=== PATIENT | female | born 1940 | race Caucasian/White ===

== ENCOUNTER 2019-06-07 18:15 | Inpatient (IN) | payer MEDICARE ==
--- NOTE | 2019-06-07 18:46 | ED Physician Chart ---
ED Chief Complaint/HPI - Patient Information Date Seen:: 06/07/19 Time Seen:: 18:30 Chief Complaint:: Depression History of Present Illness:: onset x 3 days of depression and sadness; no report of trauma, SIs, H/As, neck pain, C/P, SOB, S/T, Abd. Pain, A/N/V/D/C, fever, chills, or urinary s/s Allergies:: Allergies Allergy/AdvReac Type Severity Reaction Status Date / Time aspirin Allergy Verified 06/07/19 18:30 metoclopramide [From Reglan] Allergy Verified 06/07/19 18:30 Penicillins Allergy Verified 06/07/19 18:30 Vitals:: Vital Signs - 8 hr 06/07/19 18:30 Temp 97.8 F HR 98 RR 21 BP 98/58 O2 Sat % 100 Historian:: Patient, EMS Review:: Nurse's Note Reviewed, Old Chart Reviewed, EMS run form Reviewed ED Review of Systems - Review of Systems General/Constitutional: No fever, No chills, No weight loss, No weakness, No diaphoresis, No edema, No loss of appetite Skin: No skin lesions, No rash, No bruising Head: No headache, No light-headedness Eyes: No loss of vision, No pain, No diplopia ENT: No earache, No nasal drainage, No sore throat, No tinnitus Neck: No neck pain, No swelling, No thyromegaly, No stiffness, No mass noted Cardio Vascular: No chest pain, No palpitations, No PND, No orthopnea, No edema Pulmonary: No SOB, No cough, No sputum, No wheezing GI: No nausea, No vomiting, No diarrhea, No pain, No melena, No hematochezia, No constipation, No hematemesis G/U: No dysuria, No frequency, No hematuria, No nacturia Paving Supervisor: No vaginal discharge, No abnormal vaginal bleed, No contraction Musculoskeletal: No bone or joint pain, No back pain, No muscle pain Endocrine: No polyuria, No polydipsia Psychiatric: Prior psych history, Depression, Anxiety, No suicidal ideation, No homicidal ideation, No auditory hallucination, No visual hallucination Hematopoietic: No bruising, No lymphadenopathy Allergic/Immuno: No urticaria, No angioedema Neurological: No syncope, No focal symptoms, No weakness, No paresthesia, No headache, No seizure, No dizziness, No confusion, No vertigo ED Past Medical History - Past Medical History Obtainable: Yes Past Medical History: HTN Family History: HTN Social History: Non Smoker, No Alcohol, No Drug Use, , Care Facility Surgical History: None Psychiatricy History: Depression Medication: Reviewed ED Physical Exam - Physical Examination General/Constitutional: Awake, Well-developed, well-nourished, Alert, No distress, GCS 15, Non-toxic appearing, Ambulatory Head: Atraumatic Eyes: Lids, conjuctiva normal, PERRL, EOMI Skin: Nl inspection, No rash, No skin lesions, No ecchymosis, Well hydrated, No lymphadenopathy ENMT: External ears, nose nl, TM canals nl, Nasal exam nl, Lips, teeth, gums nl , Oropharynx nl, Tonsils nl Neck: Nontender, Full ROM w/o pain, No JVD, No nuchal rigidity, No bruit, No mass, No stridor Respiratory: Nl effort/Exclusion, Clear to Auscultation, No Wheeze/Rhonchi/Rales Cardio Vascular: RRR, No murmur, gallop, rubs, NL S1 S2, Carotid/Femoral/Distal pulses equal bilaterally GI: No tenderness/rebounding/guarding, No organomegaly, No hernia, Normal BS's, Nondistended, No mass/bruits, No McBurney tenderness : No CVA tenderness Extremities: No tenderness or effusion, Full ROM, normal strength in all extremities, No edema, Normal digits & nails Neuro/Psych: Alert/oriented, DTR's symmetric, Normal sensory exam, Normal motor strength, Judgement/insight normal, Mood normal, Normal gait, No focal deficits Other Neuro/Psych comments:: + Psychomotor Retardation; no SIs; Mood/Affect: Tearful Misc: Normal back, No paraspinal tenderness ED Septic Shock - . Is Septic Shock (SBP<90, OR Lactate>4 mmol\L) present?: No - <6hrs of presentation: Vital Signs: Vital Signs - 8 hr 06/07/19 18:30 Temp 97.8 F HR 98 RR 21 BP 98/58 O2 Sat % 100 ED Reassessment (Disposition) - Reassessment Reassessment Condition:: Improved - Diagnosis Diagnosis:: Depression; Medical Clearance
[2019-06-07 18:57] LABS: % BASOPHILS 0.8 % (0.0-2.0); % EOSINOPHILS 3.3 % (0.0-5.0); % LYMPHOCYTES 33.1 % (20.0-50.0); % MONOCYTES 8.9 % (2.0-10.0); % NEUTROPHILS 53.9 % (40.0-80.0); BASOPHILE ABSOLUTE 0.1 Th/cumm (0-0.2); EOSINOPHILE ABSOLUTE 0.2 Th/cmm (0.1-0.4); HEMATOCRIT 43.3 % (41.0-60); HEMOGLOBIN 13.5 gm/dL (12-16); LYMPHOCYTE ABSOLUTE 2.1 Th/cmm (1.5-3.0); MEAN CORPUSCULAR HEMOGLOBIN 20.2 pg (27.0-31.0); MEAN CORPUSCULAR HGB CONC 31.2 pg (28.0-36.0); MONOCYTE ABSOLUTE 0.6 Th/cmm (0.3-1.0); NEUTROPHILE ABSOLUTE 3.4 Th/cmm (1.8-8.0); PLATELET COUNT 309 Th/cmm (150-400); RED BLOOD COUNT 6.69 Mil/cmm (3.80-5.20); RED CELL DISTRIBUTION WIDTH 14.9 % (11.5-20.0); WHITE BLOOD COUNT 6.4 Th/cmm (4.8-10.8)
[2019-06-07 19:18] LABS: ALB/GLOB RATIO 1.8 (1.0-1.8); ALBUMIN 4.1 gm/dL (3.7-5.3); ALKALINE PHOSPHATASE 50 U/L (34-104); ANION GAP 13.8 (7.0-16.0); BILIRUBIN,TOTAL 0.5 mg/dL (0.3-1.0); BUN - UREA NITROGEN 15 mg/dL (7-25); CALCIUM SERUM 9.5 mg/dL (8.6-10.3); CARBON DIOXIDE 25.2 mEq/L (21.0-31.0); CHLORIDE 101 mEq/L (98-107); CHOLESTEROL 256 mg/dL (<200); CREATININE - SERUM 0.7 mg/dL (0.6-1.2); GLUCOSE 231 mg/dL (70-105); HDL -HIGH DENSITY LIPOPROTEIN 36 mg/dL (23-92); SGOT 10 U/L (13-39); SGPT/ALT 8 U/L (7-52); SODIUM SERUM 136 mEq/L (136-145); TOTAL PROTEIN,SERUM 6.4 gm/dL (6.0-8.3); TRIGLYCERIDES 315 mg/dL (<150)
[2019-06-07 19:20] LABS: ACETAMINOPHEN < 10.0 ug/mL (10.0-30.0)
[2019-06-07 19:23] LABS: MEAN CELL VOLUME 64.7 fl (81-100)
[2019-06-07 21:34] VITALS: BP 100/70
[2019-06-07] MEDS ORDERED: Maalox 30 mL Cup PO PRN (21:40)
[2019-06-07] MEDS ORDERED: Magnesium Hydroxide (MOM) 30 mL UDC PO PRN (21:52)
[2019-06-07] MEDS ORDERED: POLYETHYLENE GLYCOL 3350 17 GM PACK PO PRN (21:52)
[2019-06-07] MEDS ORDERED: Dextrose 50% 50 mL Abboject IVP PRN (23:25)
[2019-06-07] MEDS ORDERED: GLUCAGON HCl 1 MG KIT IM PRN (23:25)
[2019-06-08] MEDS: INSULIN LISPRO SLIDING SCALE 100 UNITS/ML UNIT SUBQ SCH ×4 (06:36→20:27)
[2019-06-08] MEDS: INSULIN HUMAN REGULAR 100 UNIT/ML VIAL SUBQ SCH ×3 (08:00→17:55)
[2019-06-08 08:08] LABS: A1C 7.5 % (4.8-5.6)
[2019-06-08] MEDS: Multivitamin Tab PO SCH (10:40)
[2019-06-08] MEDS: Ferrous Sulfate 325 MG TAB PO SCH (10:41)
[2019-06-08] MEDS: Benztropine 1 MG TAB PO SCH (10:41)
[2019-06-08] MEDS: Oxybutynin Chloride 5 mg ER Tab PO SCH (10:42)
[2019-06-08] MEDS ORDERED: Promethazine DM 6.25/15mg-5mL 5 ML SYR PO PRN (11:28)
--- NOTE | 2019-06-08 13:30 | History & Physical ---
ADMIT DATE: 06/08/2019 IDENTIFYING INFORMATION: The patient is a 78-year-old female. HISTORY OF PRESENT ILLNESS: The patient was admitted because of depression for 3 days. The patient was a poor historian. She believes she is 63, when in reality she is 78, also unable to tell me the date. She said she was hospitalized before and she reports she is trying to get a job and because she reports that she was hospitalized because of divorce and now she is getting back with her . She came from assisted living that she is trying to get back with her ex- who her. She denies any visual hallucination or paranoia. She said she sleeps well, eats well. No substance abuse. PAST PSYCHIATRIC HISTORY: The patient reports that she has a history of prior depression, was hospitalized before going through divorce. She denies prior suicide attempts, never tried to harm herself. Denies any visual hallucination or paranoia. Denies feeling paranoid. MEDICAL HISTORY: Deferred to the medical doctor. ALLERGIES: THE PATIENT IS ALLERGIC TO ASPIRIN, METOCLOPRAMIDE, PENICILLIN. The patient has hyperlipidemia, Cogentin, Celexa 20 mg daily. FAMILY AND SOCIAL HISTORY: The patient reports she is getting . She is from her , but getting back together. She has 3 children. She said she believed they are teenagers, unable to give me their ages. She said she has a master's Brazilian. 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 Looking to work as a human anatomy teacher. She came from an assisted living. She denies substance abuse. MENTAL STATUS EXAMINATION: The patient is appropriately dressed, not well groomed. She was alert, unable to tell me the date. She believes she is 63, when in reality she is 78. She denies any visual loss or paranoia. Denies any intent to harm herself or anyone. She reported feeling depressed. Sleep and appetite is okay. No intent to harm anyone or herself. She seems to have average intelligence. Her long and short term memory is poor. Insight and judgment is impaired. IMPRESSION: Major depression, recurrent, severe with no psychosis, dementia. MEDICAL DIAGNOSES: Deferred to the medical doctor. PLAN: The patient will continue on medication. We will do group therapy, milieu therapy, and individual therapy. ESTIMATED LENGTH OF STAY: 3-7 days. DISCHARGE CRITERIA: Decreasing depression, feeling better, decrease confusion as possible after discharge, outpatient treatment. [facility]# [id number]
[2019-06-08] MEDS: Atorvastatin Calcium 10 MG TAB PO SCH (17:54)
[2019-06-08] MEDS: Insulin Glargine 100 units/ml 10ml Vial SUBQ SCH (20:27)
--- NOTE | 2019-06-09 03:29 | Consultation ---
DATE OF CONSULTATION: INTERNAL MEDICINE CONSULTATION REFERRING PHYSICIAN: Dr. Wall. REASON FOR CONSULT: Medical management. HISTORY OF PRESENT ILLNESS: This is a 78-year-old female with a history of dementia, bipolar disease, type 2 diabetes, hypertension, chronic anemia, who was brought into the ED secondary to depression and sadness that was noted by staff where she lives. She states that she is not really depressed, but feels sick secondary to sore throat and a cough that has been going on for about a week. She denies any fever, chills or any other pulmonary symptomatology. The patient was [facility] for further management and care. PAST MEDICAL HISTORY: As noted above. PAST SURGERIES: The patient states that she has had bilateral arm surgery many years ago and also kidney surgery. FAMILY HISTORY: Likely noncontributory to this admission. SOCIAL HISTORY: Denies any tobacco or alcohol in the past. She is a and she lives at care facility. ALLERGIES: ASPIRIN, PENICILLINS, AND METOCLOPRAMIDE. OUTPATIENT MEDICATIONS: Tylenol 650 q. 6 p.r.n. for fever and pain, Cogentin 1 mg daily, Dulcolax 10 mg per rectum daily p.r.n. for moderate constipation, milk of magnesia 30 mL q. 4 p.r.n. for GI distress and constipation, citalopram 20 mg daily, iron sulfate 325 daily, Lantus insulin 20 units at bedtime and regular insulin 6 units t.i.d. with meals, Lamictal 100 mg at bedtime, Ativan 0.5 mg q. 4 p.r.n. for anxiety, Namenda 5 b.i.d., multivitamins daily, oxybutynin 10 mg daily, MiraLax 17 grams daily, Risperdal 1 mg daily and 2 mg at bedtime, trazodone 100 mg at bedtime, Ambien 5 mg at bedtime p.r.n. for insomnia. REVIEW OF SYSTEMS: CONSTITUTIONAL: She denies any fever, chills, any recent weight loss. HEAD AND NECK: Complaining of sore throat for the last few days. PULMONARY: Cough with phlegm production, mostly whitish secretions. CARDIAC: No chest pain. Denies any palpitations or any angina type of pain. GASTROINTESTINAL: No bowel habit changes. GENITOURINARY: No bladder habit changes. NEUROLOGICAL: No changes in vision, no headaches. Denies any syncope. PHYSICAL EXAMINATION: VITAL SIGNS: Temperature 97.8, pulse 82, respirations 18, BP 118/61, satting 100% on room air. GENERAL: Well-developed, obese female in no acute distress, nontoxic appearing. HEAD AND NECK: Normocephalic, atraumatic. Pupils are reactive to light. Extraocular movements are intact. Oropharynx: There is mild erythema on the posterior pharyngeal wall. No exudates noted. NECK: There is no JVD or LAD. CARDIAC: Regular rate and rhythm with distant sounds. LUNGS: Clear to auscultation bilaterally. ABDOMEN: Soft, supple, nontender, nondistended, normoactive bowel sounds. EXTREMITIES: Lower extremities: She has no pedal edema. NEUROLOGIC: Grossly intact, nonfocal. Cranial nerves 2-12 are grossly within normal limits. She is able to move 4 extremities with equal force and strength. LABORATORY DATA: White count 6.4, H and H 13/43, platelets of 309, glucose 231. Otherwise, chemistry was within normal limits. Troponins were negative x 1 set. LFTs were within normal limits. Triglycerides 315, cholesterol 256, LDL 177, HDL 36. DIAGNOSTICS: None current. ASSESSMENT: 1. Acute depression. 2. History of depression. 3. Bipolar disorder. 4. History of dementia. 5. Type 2 diabetes. 6. Essential hypertension. 7. History of chronic anemia. 8. Mild pharyngitis/upper respiratory infection. 9. Dyslipidemia. PLAN: The patient has been admitted to [facility] where she will be kept on her current home medications as scheduled. The patient will be treated symptomatically for her sore throat and cough with Cepacol lozenges, Phenergan, and she will receive a Zithromax course. The patient also will be started on atorvastatin 20 mg at bedtime. [facility]# [id number]
[2019-06-09] MEDS: INSULIN LISPRO SLIDING SCALE 100 UNITS/ML UNIT SUBQ SCH ×4 (06:38→21:49)
[2019-06-09] MEDS: INSULIN HUMAN REGULAR 100 UNIT/ML VIAL SUBQ SCH ×2 (08:00→12:00)
[2019-06-09] MEDS: Atorvastatin Calcium 10 MG TAB PO SCH (09:00)
[2019-06-09] MEDS: Ferrous Sulfate 325 MG TAB PO SCH (09:00)
[2019-06-09] MEDS: Multivitamin Tab PO SCH (09:00)
[2019-06-09] MEDS: Benztropine 1 MG TAB PO SCH (09:00)
[2019-06-09] MEDS: Oxybutynin Chloride 5 mg ER Tab PO SCH (09:00)
--- NOTE | 2019-06-09 14:51 | Progress Notes ---
DATE: 06/09/2019 sCase was discussed with staff of the patient, reviewed records. The patient continues to be confused, continues to be unable to carry on a conversation. She continues to have poor insight. Continues to need redirection. The patient reports she slept well, eating well. She has been compliant with the medication with no side effects since Celexa 20 mg a day and she is also on insulin. She is on Lamictal 100 mg at bedtime and Namenda 5 mg twice a day, multivitamin, oxybutynin, and Risperdal 1 mg daily and 2 mg at bedtime. We will continue the patient in group therapy, milieu therapy, adjust the medications as needed. [facility]# [id number]
[2019-06-09] MEDS: Insulin Glargine 100 units/ml 10ml Vial SUBQ SCH (21:48)
[2019-06-10] MEDS: INSULIN LISPRO SLIDING SCALE 100 UNITS/ML UNIT SUBQ SCH ×4 (06:59→21:37)
[2019-06-10] MEDS: Atorvastatin Calcium 10 MG TAB PO SCH (08:55)
[2019-06-10] MEDS: Ferrous Sulfate 325 MG TAB PO SCH (08:56)
[2019-06-10] MEDS: Benztropine 1 MG TAB PO SCH (08:56)
[2019-06-10] MEDS: Multivitamin Tab PO SCH (08:57)
[2019-06-10] MEDS: Oxybutynin Chloride 5 mg ER Tab PO SCH (08:57)
[2019-06-10] MEDS: Escitalopram Oxalate 10 MG, Escitalopram Oxalate 5 MG PO SCH (10:15)
[2019-06-10] MEDS ORDERED: Escitalopram Oxalate 10 MG, Escitalopram Oxalate 5 MG PO ONE (10:15)
--- NOTE | 2019-06-10 10:33 | Internal Medicine Prog Note ---
Internal Medicine Subjective - Subjective Service Date: 06/10/19 (COMFORTABLE) Patient seen and examined:: without staff Patient is:: awake Patient Complaints of:: sore throat Per staff patient has:: no adverse event Internal Medicine Objective - Results Result Diagrams: 06/07/19 18:40 06/07/19 18:40 Recent Labs: Laboratory Last Values WBC 6.4 Th/cmm (4.8-10.8) 06/07/19 18:40 RBC 6.69 Mil/cmm (3.80-5.20) H 06/07/19 18:40 Hgb 13.5 gm/dL (12-16) 06/07/19 18:40 Hct 43.3 % (41.0-60) 06/07/19 18:40 MCV 64.7 fl (81-100) L 06/07/19 18:40 MCH 20.2 pg (27.0-31.0) L 06/07/19 18:40 MCHC Differential 31.2 pg (28.0-36.0) 06/07/19 18:40 RDW 14.9 % (11.5-20.0) 06/07/19 18:40 Plt Count 309 Th/cmm (150-400) 06/07/19 18:40 MPV 8.0 fl 06/07/19 18:40 Neutrophils % 53.9 % (40.0-80.0) 06/07/19 18:40 Lymphocytes % 33.1 % (20.0-50.0) 06/07/19 18:40 Monocytes % 8.9 % (2.0-10.0) 06/07/19 18:40 Eosinophils % 3.3 % (0.0-5.0) 06/07/19 18:40 Basophils % 0.8 % (0.0-2.0) 06/07/19 18:40 Sodium 136 mEq/L (136-145) 06/07/19 18:40 Potassium 4.0 mEq/L (3.5-5.1) 06/07/19 18:40 Chloride 101 mEq/L (98-107) 06/07/19 18:40 Carbon Dioxide 25.2 mEq/L (21.0-31.0) 06/07/19 18:40 Anion Gap 13.8 (7.0-16.0) 06/07/19 18:40 BUN 15 mg/dL (7-25) 06/07/19 18:40 Creatinine 0.7 mg/dL (0.6-1.2) 06/07/19 18:40 Est GFR ( Amer) TNP 06/07/19 18:40 Est GFR (Non-Af Amer) TNP 06/07/19 18:40 BUN/Creatinine Ratio 21.4 06/07/19 18:40 Glucose 231 mg/dL (70-105) H 06/07/19 18:40 POC Glucose 237 MG/DL (70 - 105) H 06/10/19 09:11 Calcium 9.5 mg/dL (8.6-10.3) 06/07/19 18:40 Total Bilirubin 0.5 mg/dL (0.3-1.0) 06/07/19 18:40 AST 10 U/L (13-39) L 06/07/19 18:40 ALT 8 U/L (7-52) 06/07/19 18:40 Alkaline Phosphatase 50 U/L (34-104) 06/07/19 18:40 Troponin I < 0.01 ng/mL (0.01-0.05) L 06/07/19 18:40 Total Protein 6.4 gm/dL (6.0-8.3) 06/07/19 18:40 Albumin 4.1 gm/dL (3.7-5.3) 06/07/19 18:40 Globulin 2.3 gm/dL 06/07/19 18:40 Albumin/Globulin Ratio 1.8 (1.0-1.8) 06/07/19 18:40 Triglycerides 315 mg/dL (<150) H 06/07/19 18:40 Cholesterol 256 mg/dL (<200) H 06/07/19 18:40 LDL Cholesterol Direct 177 mg/dL (75-193) 06/07/19 18:40 HDL Cholesterol 36 mg/dL (23-92) 06/07/19 18:40 TSH 2.53 uIU/ml (0.34-5.60) 06/07/19 18:40 Salicylates < 25.0 mg/L (30.0-100.0) L 06/07/19 18:40 Acetaminophen < 10.0 ug/mL (10.0-30.0) L 06/07/19 18:40 Ethyl Alcohol < 10 mg/dL (0-10) 06/07/19 18:40 - Physical Exam Vitals and I&O: Vital Signs Temp 97.0 F 06/10/19 06:12 Pulse 73 06/10/19 06:12 Resp 18 06/10/19 07:39 BP 112/65 06/10/19 06:12 Pulse Ox 93 06/10/19 06:12 Intake & Output 06/09/19 06/10/19 06/10/19 18:59 06:59 18:59 Intake Total 240 Balance 240 Intake: Oral 240 Other: # Voids 2 Active Medications: Current Medications Acetaminophen (Tylenol) 650 mg PO Q6H PRN PRN Reason: PAIN Last Admin: 06/08/19 17:43 Dose: 650 mg Al Hydrox/Mg Hydrox/Simethicone (Maalox) 30 ml PO Q4H PRN PRN Reason: GI DISTRESS Stop: 08/06/19 21:39 Atorvastatin Calcium (Lipitor) 20 mg PO DAILY [facility]; Protocol Stop: 08/07/19 11:44 Last Admin: 06/10/19 08:55 Dose: 20 mg Azithromycin (Zithromax) 500 mg PO DAILY [facility] Stop: 08/07/19 11:44 Last Admin: 06/10/19 08:55 Dose: 500 mg Benzocaine/Menthol (Cepacol) 1 gordy MM Q4HR PRN PRN Reason: SORE THROAT Stop: 08/07/19 11:26 Benztropine Mesylate (Cogentin) 1 mg PO DAILY [facility] Stop: 08/07/19 08:59 Last Admin: 06/10/19 08:56 Dose: 1 mg Bisacodyl (Dulcolax 10 Mg Supp) 10 mg RC DAILY PRN PRN Reason: IF MOM INEFFECTIVE Stop: 08/06/19 21:51 Dextrose (D50w) 50 ml IVP PRN PRN PRN Reason: Blood Glucose less than 70 Stop: 08/06/19 23:24 Dextrose (Glutose 40%) 18.75 gm PO PRN PRN PRN Reason: Blood Glucose less than 70 Stop: 08/06/19 23:24 Escitalopram Oxalate 10 mg/ (Escitalopram Oxalate 5 mg) 15 mg PO DAILY [facility] Stop: 08/09/19 10:29 Ferrous Sulfate (Iron) 325 mg PO DAILY [facility] Stop: 08/07/19 08:59 Last Admin: 06/10/19 08:56 Dose: 325 mg Glucagon (Glucagen) 1 mg IM PRN PRN PRN Reason: Blood Glucose less than 70 Stop: 08/06/19 23:24 Insulin Glargine (Lantus Insulin) 20 units SUBQ HS [facility] Stop: 08/07/19 20:59 Last Admin: 06/09/19 21:48 Dose: 20 units Insulin Human Lispro (Humalog Insulin Sliding Scale) 0 units SUBQ [facility]; Protocol Stop: 08/07/19 07:29 Last Admin: 06/10/19 06:59 Dose: 2 units Lamotrigine (Lamictal) 100 mg PO HS [facility] Stop: 08/07/19 20:59 Last Admin: 06/09/19 21:18 Dose: 100 mg Lorazepam (Ativan) 0.5 mg PO Q4HR PRN; Protocol PRN Reason: Anxiety Stop: 07/07/19 21:39 Last Admin: 06/08/19 17:45 Dose: 0.5 mg Magnesium Hydroxide (Milk Of Magnesia) 30 ml PO PRN PRN PRN Reason: LAXATIVE Stop: 08/06/19 21:51 Memantine (Namenda) 5 mg PO BID [facility] Stop: 08/07/19 08:59 Last Admin: 06/10/19 08:56 Dose: 5 mg Multivitamins/Vitamin C (Theragran) 1 tab PO DAILY [facility] Stop: 08/07/19 08:59 Last Admin: 06/10/19 08:57 Dose: 1 tab Oxybutynin Chloride (Ditropan Xl) 10 mg PO DAILY [facility] Stop: 08/07/19 08:59 Last Admin: 06/10/19 08:57 Dose: 10 mg Polyethylene Glycol (Miralax) 17 gm PO DAILY PRN PRN Reason: Constipation Stop: 08/06/19 21:51 Promethazine HCl/Dextromethorphan (Phenergan Dm 6.25/15mg-5 Ml) 5 ml PO Q6HR PRN PRN Reason: Cough Stop: 08/07/19 11:27 Risperidone (Risperdal) 1 mg PO DAILY [facility]; Protocol Stop: 10/16/19 08:59 Last Admin: 06/10/19 08:57 Dose: 1 mg Risperidone (Risperdal) 2 mg PO HS [facility] Stop: 08/07/19 20:59 Last Admin: 06/09/19 21:18 Dose: 2 mg Trazodone HCl (Desyrel) 100 mg PO HS [facility] Stop: 08/07/19 20:59 Last Admin: 06/09/19 21:18 Dose: 100 mg Zolpidem Tartrate (Ambien) 5 mg PO HS PRN PRN Reason: Insomnia Stop: 08/06/19 21:39 General: alert HEENT: NC/AT, PERRLA, EOMI, throat clear Neck: Supple, No JVD, No thyromegaly, No LAD Lungs: CTAB Cardiovascular: RRR, Normal S1, Normal S2, without murmur Abdomen: soft, non-tender, non-distended, positive bowel sound Extremities: clear Neurological: no change Internal Medicine Assmt/Plan - Assessment Assessment: ACUTE PSYCH DECOMPENSATION WITH DEPRESSION HISTORY OF DEMENTIA HISTORY OF DM-2 HISTORY OF ESSENTIAL HTN CHRONIC ANEMIA DYSLIPIDIMIA URI - Plan Plan: CONT WITH CURRENT PSYCH INPT CARE AND MGT CONT WITH CURRENT MEDS SCHEDULED CONT WITH ZITHROMAX
[2019-06-10] MEDS: Insulin Glargine 100 units/ml 10ml Vial SUBQ SCH (21:38)
--- NOTE | 2019-06-11 00:07 | Progress Notes ---
DATE: SUBJECTIVE: Chart reviewed and the patient interviewed. Also discussed the patient's condition with the staff and reviewed records and labs. The patient is still depressed. The patient also is still tearful and is withdrawn. She is also interacting minimally with others. The patient also is feeling hopeless and helpless. The patient continued to take Celexa 20 mg every day, and she also continued to take Namenda 5 mg twice a day and Risperdal in a dose of 1 mg in the morning and 2 mg at bedtime. The patient also is taking trazodone 100 mg at bedtime, which helps the patient to sleep better at night. ASSESSMENT: The patient is still depressed. TREATMENT PLAN: Also, we will continue adjusting psychotropic medications and work on behavioral modification and work on her ineffective coping. Also, we will discontinue Celexa and start Lexapro. Hopefully, that will help the patient's depression more, and we will start in a dose of 15 mg every day and continue to follow up closely. [facility]# [id number]
[2019-06-11] MEDS: INSULIN LISPRO SLIDING SCALE 100 UNITS/ML UNIT SUBQ SCH ×4 (06:41→20:56)
--- NOTE | 2019-06-11 07:21 | Progress Notes ---
DATE: SUBJECTIVE: Chart reviewed and the patient interviewed. Also discussed the patient's condition with the staff and reviewed records and labs. The patient remains severely depressed. The patient also is anxious and is still guarded and withdrawn. Interacting minimally with others. The patient also is still forgetful and at times tearful. Otherwise, the patient is compliant with taking her medications with no side effects of medications. ASSESSMENT: The patient is still depressed and confused. TREATMENT PLAN: I did change Celexa yesterday to Lexapro, hopefully to help with her depression. Also, continue Risperdal. Also, continue to work on her ineffective coping and her severe level of depression and we will continue to follow up. [facility]# [id number]
[2019-06-11] MEDS: Multivitamin Tab PO SCH (08:52)
[2019-06-11] MEDS: Escitalopram Oxalate 10 MG, Escitalopram Oxalate 5 MG PO SCH (08:52)
[2019-06-11] MEDS: Oxybutynin Chloride 5 mg ER Tab PO SCH (08:52)
[2019-06-11] MEDS: Atorvastatin Calcium 10 MG TAB PO SCH (08:53)
[2019-06-11] MEDS: Benztropine 1 MG TAB PO SCH (08:53)
[2019-06-11] MEDS: Ferrous Sulfate 325 MG TAB PO SCH (08:53)
--- NOTE | 2019-06-11 09:22 | Internal Medicine Prog Note ---
Internal Medicine Subjective - Subjective Service Date: 06/11/19 (no events or distress) Patient seen and examined:: without staff Patient is:: awake Patient Complaints of:: sore throat Per staff patient has:: no adverse event Internal Medicine Objective - Results Result Diagrams: 06/07/19 18:40 06/07/19 18:40 Recent Labs: Laboratory Last Values WBC 6.4 Th/cmm (4.8-10.8) 06/07/19 18:40 RBC 6.69 Mil/cmm (3.80-5.20) H 06/07/19 18:40 Hgb 13.5 gm/dL (12-16) 06/07/19 18:40 Hct 43.3 % (41.0-60) 06/07/19 18:40 MCV 64.7 fl (81-100) L 06/07/19 18:40 MCH 20.2 pg (27.0-31.0) L 06/07/19 18:40 MCHC Differential 31.2 pg (28.0-36.0) 06/07/19 18:40 RDW 14.9 % (11.5-20.0) 06/07/19 18:40 Plt Count 309 Th/cmm (150-400) 06/07/19 18:40 MPV 8.0 fl 06/07/19 18:40 Neutrophils % 53.9 % (40.0-80.0) 06/07/19 18:40 Lymphocytes % 33.1 % (20.0-50.0) 06/07/19 18:40 Monocytes % 8.9 % (2.0-10.0) 06/07/19 18:40 Eosinophils % 3.3 % (0.0-5.0) 06/07/19 18:40 Basophils % 0.8 % (0.0-2.0) 06/07/19 18:40 Sodium 136 mEq/L (136-145) 06/07/19 18:40 Potassium 4.0 mEq/L (3.5-5.1) 06/07/19 18:40 Chloride 101 mEq/L (98-107) 06/07/19 18:40 Carbon Dioxide 25.2 mEq/L (21.0-31.0) 06/07/19 18:40 Anion Gap 13.8 (7.0-16.0) 06/07/19 18:40 BUN 15 mg/dL (7-25) 06/07/19 18:40 Creatinine 0.7 mg/dL (0.6-1.2) 06/07/19 18:40 Est GFR ( Amer) TNP 06/07/19 18:40 Est GFR (Non-Af Amer) TNP 06/07/19 18:40 BUN/Creatinine Ratio 21.4 06/07/19 18:40 Glucose 231 mg/dL (70-105) H 06/07/19 18:40 POC Glucose 157 MG/DL (70 - 105) H 06/11/19 06:28 Calcium 9.5 mg/dL (8.6-10.3) 06/07/19 18:40 Total Bilirubin 0.5 mg/dL (0.3-1.0) 06/07/19 18:40 AST 10 U/L (13-39) L 06/07/19 18:40 ALT 8 U/L (7-52) 06/07/19 18:40 Alkaline Phosphatase 50 U/L (34-104) 06/07/19 18:40 Troponin I < 0.01 ng/mL (0.01-0.05) L 06/07/19 18:40 Total Protein 6.4 gm/dL (6.0-8.3) 06/07/19 18:40 Albumin 4.1 gm/dL (3.7-5.3) 06/07/19 18:40 Globulin 2.3 gm/dL 06/07/19 18:40 Albumin/Globulin Ratio 1.8 (1.0-1.8) 06/07/19 18:40 Triglycerides 315 mg/dL (<150) H 06/07/19 18:40 Cholesterol 256 mg/dL (<200) H 06/07/19 18:40 LDL Cholesterol Direct 177 mg/dL (75-193) 06/07/19 18:40 HDL Cholesterol 36 mg/dL (23-92) 06/07/19 18:40 TSH 2.53 uIU/ml (0.34-5.60) 06/07/19 18:40 Salicylates < 25.0 mg/L (30.0-100.0) L 06/07/19 18:40 Acetaminophen < 10.0 ug/mL (10.0-30.0) L 06/07/19 18:40 Ethyl Alcohol < 10 mg/dL (0-10) 06/07/19 18:40 - Physical Exam Vitals and I&O: Vital Signs Temp 97.8 F 06/11/19 05:22 Pulse 78 06/11/19 05:22 Resp 20 06/11/19 05:22 BP 106/59 06/11/19 05:22 Pulse Ox 92 06/11/19 05:22 Intake & Output 06/10/19 06/11/19 06/11/19 18:59 06:59 18:59 Intake Total 240 Balance 240 Intake: Oral 240 Other: # Voids 2 Active Medications: Current Medications Acetaminophen (Tylenol) 650 mg PO Q6H PRN PRN Reason: PAIN Last Admin: 06/10/19 17:14 Dose: 650 mg Al Hydrox/Mg Hydrox/Simethicone (Maalox) 30 ml PO Q4H PRN PRN Reason: GI DISTRESS Stop: 08/06/19 21:39 Atorvastatin Calcium (Lipitor) 20 mg PO DAILY [facility]; Protocol Stop: 08/07/19 11:44 Last Admin: 06/11/19 08:53 Dose: 20 mg Azithromycin (Zithromax) 500 mg PO DAILY [facility] Stop: 08/07/19 11:44 Last Admin: 06/11/19 08:52 Dose: 500 mg Benzocaine/Menthol (Cepacol) 1 gordy MM Q4HR PRN PRN Reason: SORE THROAT Stop: 08/07/19 11:26 Benztropine Mesylate (Cogentin) 1 mg PO DAILY [facility] Stop: 08/07/19 08:59 Last Admin: 06/11/19 08:53 Dose: 1 mg Bisacodyl (Dulcolax 10 Mg Supp) 10 mg RC DAILY PRN PRN Reason: IF MOM INEFFECTIVE Stop: 08/06/19 21:51 Dextrose (D50w) 50 ml IVP PRN PRN PRN Reason: Blood Glucose less than 70 Stop: 08/06/19 23:24 Dextrose (Glutose 40%) 18.75 gm PO PRN PRN PRN Reason: Blood Glucose less than 70 Stop: 08/06/19 23:24 Escitalopram Oxalate 10 mg/ (Escitalopram Oxalate 5 mg) 15 mg PO DAILY [facility] Stop: 08/09/19 10:29 Last Admin: 06/11/19 08:52 Dose: 15 mg Ferrous Sulfate (Iron) 325 mg PO DAILY [facility] Stop: 08/07/19 08:59 Last Admin: 06/11/19 08:53 Dose: 325 mg Glucagon (Glucagen) 1 mg IM PRN PRN PRN Reason: Blood Glucose less than 70 Stop: 08/06/19 23:24 Insulin Glargine (Lantus Insulin) 20 units SUBQ HS [facility] Stop: 08/07/19 20:59 Last Admin: 06/10/19 21:38 Dose: 20 units Insulin Human Lispro (Humalog Insulin Sliding Scale) 0 units SUBQ [facility]; Protocol Stop: 08/07/19 07:29 Last Admin: 06/11/19 06:41 Dose: 2 units Lamotrigine (Lamictal) 100 mg PO [facility] Stop: 08/07/19 20:59 Last Admin: 06/10/19 21:36 Dose: 100 mg Lorazepam (Ativan) 0.5 mg PO Q4HR PRN; Protocol PRN Reason: Anxiety Stop: 07/07/19 21:39 Last Admin: 06/10/19 17:14 Dose: 0.5 mg Magnesium Hydroxide (Milk Of Magnesia) 30 ml PO PRN PRN PRN Reason: LAXATIVE Stop: 08/06/19 21:51 Memantine (Namenda) 5 mg PO BID [facility] Stop: 08/07/19 08:59 Last Admin: 06/11/19 08:52 Dose: 5 mg Multivitamins/Vitamin C (Theragran) 1 tab PO DAILY [facility] Stop: 08/07/19 08:59 Last Admin: 06/11/19 08:52 Dose: 1 tab Oxybutynin Chloride (Ditropan Xl) 10 mg PO DAILY [facility] Stop: 08/07/19 08:59 Last Admin: 06/11/19 08:52 Dose: 10 mg Polyethylene Glycol (Miralax) 17 gm PO DAILY PRN PRN Reason: Constipation Stop: 08/06/19 21:51 Promethazine HCl/Dextromethorphan (Phenergan Dm 6.25/15mg-5 Ml) 5 ml PO Q6HR PRN PRN Reason: Cough Stop: 08/07/19 11:27 Risperidone (Risperdal) 1 mg PO DAILY [facility]; Protocol Stop: 08/07/19 08:59 Last Admin: 06/11/19 08:53 Dose: 1 mg Risperidone (Risperdal) 2 mg PO HS [facility] Stop: 08/07/19 20:59 Last Admin: 06/10/19 21:37 Dose: 2 mg Trazodone HCl (Desyrel) 100 mg PO HS [facility] Stop: 08/07/19 20:59 Last Admin: 06/10/19 21:37 Dose: 100 mg Zolpidem Tartrate (Ambien) 5 mg PO HS PRN PRN Reason: Insomnia Stop: 08/06/19 21:39 General: alert HEENT: NC/AT, PERRLA, EOMI, throat clear Neck: Supple, No JVD, No thyromegaly, No LAD Lungs: CTAB Cardiovascular: RRR, Normal S1, Normal S2, without murmur Abdomen: soft, non-tender, non-distended, positive bowel sound Extremities: clear Neurological: no change Internal Medicine Assmt/Plan - Assessment Assessment: ACUTE PSYCH DECOMPENSATION WITH DEPRESSION HISTORY OF DEMENTIA HISTORY OF DM-2 HISTORY OF ESSENTIAL HTN-stable. CHRONIC ANEMIA DYSLIPIDIMIA URI-clinically stable. - Plan Plan: CONT WITH CURRENT PSYCH INPT CARE AND MGT CONT WITH CURRENT MEDS SCHEDULED CONT WITH ZITHROMAX Nutritional Asmnt/Malnutr-PDOC - Dietary Evaluation Malnutrition Findings (Please click <Entered> for more info): Nutritional Asmnt/Malnutrition Start: 06/10/19 13: 04 Text: Status: Complete Freq: Protocol: Document 06/10/19 13:05 SUNITHA (Rec: 06/10/19 13:08 SUNITHA [email or web address]) Nutritional Asmnt/Malnutrition Patient General Information Nutritional Screening Moderate Risk Diagnosis Psychosis NOS Pertinent Medical Hx/Surgical Hx HTN, Depression Subjective Information Pt is a 78-year-old female from assisted living admitted on 06/07 c/o depression and sadness x 3 days. Per Meal/ Nutrition Activity Record, Pt PO intake 70% meals x 2 days. HT: 52 WT: 155 LB (70.45 kg) ADJ BW: 58.24 kg BMI: 28.35 (Overweight) GI: WNL, Soft, Non-Tender BM: Not noted I/O: 240/Not Noted Skin: WNL, Intact, Bruises Jori: 17 Diet Order: [facility] Estimated Energy Needs: ( Overweight, ADJ BW) 5113-1349 kcals (20-25kcals/kg ) 47-52 g Pro (0.8-0.9 g/kg) 2563-7904 ml (25-30 ml/kg) Pt PO intake 70% meals x 2 days Per Meal/Nutrition Activity Record. Dietary is currently providing an estimated 1779 kcals and 87 gm Pro, per Pt PO intake this is providing an estimated 1245 kcals and 61 gm Pro to meet 100% kcal and 100+% Pro needs- Adequate. Current Diet Order/ Nutrition Support [facility] Pertinent Medications Maalox (PRN), Lipitor, Dulcolax (PRN), D50w (PRN), Glutose 40% (PRN), Ferrous Sulfate, Glucagen (PRN), Lantus Insulin, INS-SS, MOM ( PRN), Theragran, Miralax (PRN) Pertinent Labs 06/10: POC Glucose (last 24 hours) 178, 173, 232, 160, 237 Nutritional Hx/Data Height 1.57 m Height (Calculated Centimeters) 157.5 Current Weight (lbs) 70.307 kg Weight (Calculated Kilograms) 70.3 Weight (Calculated Grams) 53262.8 [place] Body Weight 50.1 kg % [place] Body Weight 141 Body Mass Index (BMI) 28.3 Weight Status Overweight GI Symptoms GI Symptoms None Last BM Not noted Skin Integrity/Comment: WNL, Intact, Bruises Jori: 17 Current %PO Fair (50-74%) Estimated Nutritional Goals BEE in Kcals: Adj wt of IBW Calories/Kcals/Kg 20-25 Kcals Calculated 7050-2965 Protein: Adj wt of IBW Protein g/k.8-0.9 Protein Calculated 47-52 Fluid: ml 7587-3103 ml (25-30 ml/kg) Nutritional Problem 1. Problem Problem Altered nutrition related labs Etiology r/t endocrine dysfunction Signs/Symptoms: aeb 06/10: POC Glucose (last 24 hours) 178, 173, 232, 160, 237 Malnutrition Related to Morbid Obesity Malnutrition related to morbid obesity No Intervention/Recommendation Comments 1.Continue with [facility] diet as ordered. 2.Continue anti-hyperglycemia meds for glucose control per MD order. Expected Outcomes/Goals Expected Outcomes/Goals 1.PO intake to continue to meet 75% of nutritional needs. 2.Monitor PO intake, wt, skin integrity, and nutrition related labs to trend WNL. 3.F/U as low risk in 7 days,
[2019-06-11] MEDS: Insulin Glargine 100 units/ml 10ml Vial SUBQ SCH (20:54)
[2019-06-12] MEDS: INSULIN LISPRO SLIDING SCALE 100 UNITS/ML UNIT SUBQ SCH ×4 (06:42→21:31)
[2019-06-12] MEDS: Escitalopram Oxalate 10 MG, Escitalopram Oxalate 5 MG PO SCH (09:24)
[2019-06-12] MEDS: Atorvastatin Calcium 10 MG TAB PO SCH (09:24)
[2019-06-12] MEDS: Oxybutynin Chloride 5 mg ER Tab PO SCH (09:24)
[2019-06-12] MEDS: Ferrous Sulfate 325 MG TAB PO SCH (09:26)
[2019-06-12] MEDS: Multivitamin Tab PO SCH (09:26)
[2019-06-12] MEDS: Benztropine 1 MG TAB PO SCH (09:26)
--- NOTE | 2019-06-12 09:30 | Internal Medicine Prog Note ---
Internal Medicine Subjective - Subjective Service Date: 06/12/19 (NO EVENTS) Patient seen and examined:: without staff Patient is:: awake Patient Complaints of:: sore throat Per staff patient has:: no adverse event Internal Medicine Objective - Results Result Diagrams: 06/07/19 18:40 06/07/19 18:40 Recent Labs: Laboratory Last Values WBC 6.4 Th/cmm (4.8-10.8) 06/07/19 18:40 RBC 6.69 Mil/cmm (3.80-5.20) H 06/07/19 18:40 Hgb 13.5 gm/dL (12-16) 06/07/19 18:40 Hct 43.3 % (41.0-60) 06/07/19 18:40 MCV 64.7 fl (81-100) L 06/07/19 18:40 MCH 20.2 pg (27.0-31.0) L 06/07/19 18:40 MCHC Differential 31.2 pg (28.0-36.0) 06/07/19 18:40 RDW 14.9 % (11.5-20.0) 06/07/19 18:40 Plt Count 309 Th/cmm (150-400) 06/07/19 18:40 MPV 8.0 fl 06/07/19 18:40 Neutrophils % 53.9 % (40.0-80.0) 06/07/19 18:40 Lymphocytes % 33.1 % (20.0-50.0) 06/07/19 18:40 Monocytes % 8.9 % (2.0-10.0) 06/07/19 18:40 Eosinophils % 3.3 % (0.0-5.0) 06/07/19 18:40 Basophils % 0.8 % (0.0-2.0) 06/07/19 18:40 Sodium 136 mEq/L (136-145) 06/07/19 18:40 Potassium 4.0 mEq/L (3.5-5.1) 06/07/19 18:40 Chloride 101 mEq/L (98-107) 06/07/19 18:40 Carbon Dioxide 25.2 mEq/L (21.0-31.0) 06/07/19 18:40 Anion Gap 13.8 (7.0-16.0) 06/07/19 18:40 BUN 15 mg/dL (7-25) 06/07/19 18:40 Creatinine 0.7 mg/dL (0.6-1.2) 06/07/19 18:40 Est GFR ( Amer) TNP 06/07/19 18:40 Est GFR (Non-Af Amer) TNP 06/07/19 18:40 BUN/Creatinine Ratio 21.4 06/07/19 18:40 Glucose 231 mg/dL (70-105) H 06/07/19 18:40 POC Glucose 160 MG/DL (70 - 105) H 06/12/19 06:16 Calcium 9.5 mg/dL (8.6-10.3) 06/07/19 18:40 Total Bilirubin 0.5 mg/dL (0.3-1.0) 06/07/19 18:40 AST 10 U/L (13-39) L 06/07/19 18:40 ALT 8 U/L (7-52) 06/07/19 18:40 Alkaline Phosphatase 50 U/L (34-104) 06/07/19 18:40 Troponin I < 0.01 ng/mL (0.01-0.05) L 06/07/19 18:40 Total Protein 6.4 gm/dL (6.0-8.3) 06/07/19 18:40 Albumin 4.1 gm/dL (3.7-5.3) 06/07/19 18:40 Globulin 2.3 gm/dL 06/07/19 18:40 Albumin/Globulin Ratio 1.8 (1.0-1.8) 06/07/19 18:40 Triglycerides 315 mg/dL (<150) H 06/07/19 18:40 Cholesterol 256 mg/dL (<200) H 06/07/19 18:40 LDL Cholesterol Direct 177 mg/dL (75-193) 06/07/19 18:40 HDL Cholesterol 36 mg/dL (23-92) 06/07/19 18:40 TSH 2.53 uIU/ml (0.34-5.60) 06/07/19 18:40 Salicylates < 25.0 mg/L (30.0-100.0) L 06/07/19 18:40 Acetaminophen < 10.0 ug/mL (10.0-30.0) L 06/07/19 18:40 Ethyl Alcohol < 10 mg/dL (0-10) 06/07/19 18:40 - Physical Exam Vitals and I&O: Vital Signs Temp 97.6 F 06/12/19 04:54 Pulse 65 06/12/19 04:54 Resp 19 06/12/19 04:54 BP 116/62 06/12/19 04:54 Pulse Ox 95 06/12/19 04:54 Intake & Output 06/11/19 06/12/19 06/12/19 18:59 06:59 18:59 Intake Total 1080 240 Balance 1080 240 Intake: Oral 1080 240 Other: # Voids 4 2 # Bowel Movements 0 Active Medications: Current Medications Acetaminophen (Tylenol) 650 mg PO Q6H PRN PRN Reason: PAIN Last Admin: 06/10/19 17:14 Dose: 650 mg Al Hydrox/Mg Hydrox/Simethicone (Maalox) 30 ml PO Q4H PRN PRN Reason: GI DISTRESS Stop: 08/06/19 21:39 Atorvastatin Calcium (Lipitor) 20 mg PO DAILY [facility]; Protocol Stop: 08/07/19 11:44 Last Admin: 06/12/19 09:24 Dose: 20 mg Azithromycin (Zithromax) 500 mg PO DAILY [facility] Stop: 08/07/19 11:44 Last Admin: 06/12/19 09:25 Dose: 500 mg Benzocaine/Menthol (Cepacol) 1 gordy MM Q4HR PRN PRN Reason: SORE THROAT Stop: 08/07/19 11:26 Benztropine Mesylate (Cogentin) 1 mg PO DAILY [facility] Stop: 08/07/19 08:59 Last Admin: 06/12/19 09:26 Dose: 1 mg Bisacodyl (Dulcolax 10 Mg Supp) 10 mg RC DAILY PRN PRN Reason: IF MOM INEFFECTIVE Stop: 08/06/19 21:51 Dextrose (D50w) 50 ml IVP PRN PRN PRN Reason: Blood Glucose less than 70 Stop: 08/06/19 23:24 Dextrose (Glutose 40%) 18.75 gm PO PRN PRN PRN Reason: Blood Glucose less than 70 Stop: 08/06/19 23:24 Escitalopram Oxalate 10 mg/ (Escitalopram Oxalate 5 mg) 15 mg PO DAILY [facility] Stop: 08/09/19 10:29 Last Admin: 06/12/19 09:24 Dose: 15 mg Ferrous Sulfate (Iron) 325 mg PO DAILY [facility] Stop: 08/07/19 08:59 Last Admin: 06/12/19 09:26 Dose: 325 mg Glucagon (Glucagen) 1 mg IM PRN PRN PRN Reason: Blood Glucose less than 70 Stop: 08/06/19 23:24 Insulin Glargine (Lantus Insulin) 20 units SUBQ HS [facility] Stop: 08/07/19 20:59 Last Admin: 06/11/19 20:54 Dose: 20 units Insulin Human Lispro (Humalog Insulin Sliding Scale) 0 units SUBQ [facility]; Protocol Stop: 08/07/19 07:29 Last Admin: 06/12/19 06:42 Dose: 2 units Lamotrigine (Lamictal) 100 mg PO [facility] Stop: 08/07/19 20:59 Last Admin: 06/11/19 20:51 Dose: 100 mg Lorazepam (Ativan) 0.5 mg PO Q4HR PRN; Protocol PRN Reason: Anxiety Stop: 07/07/19 21:39 Last Admin: 06/11/19 16:52 Dose: 0.5 mg Magnesium Hydroxide (Milk Of Magnesia) 30 ml PO PRN PRN PRN Reason: LAXATIVE Stop: 08/06/19 21:51 Memantine (Namenda) 5 mg PO BID [facility] Stop: 08/07/19 08:59 Last Admin: 06/12/19 09:27 Dose: 5 mg Multivitamins/Vitamin C (Theragran) 1 tab PO DAILY [facility] Stop: 08/07/19 08:59 Last Admin: 06/12/19 09:26 Dose: 1 tab Oxybutynin Chloride (Ditropan Xl) 10 mg PO DAILY [facility] Stop: 08/07/19 08:59 Last Admin: 06/12/19 09:24 Dose: 10 mg Polyethylene Glycol (Miralax) 17 gm PO DAILY PRN PRN Reason: Constipation Stop: 08/06/19 21:51 Promethazine HCl/Dextromethorphan (Phenergan Dm 6.25/15mg-5 Ml) 5 ml PO Q6HR PRN PRN Reason: Cough Stop: 08/07/19 11:27 Risperidone (Risperdal) 1 mg PO DAILY [facility]; Protocol Stop: 08/07/19 08:59 Last Admin: 06/12/19 09:27 Dose: 1 mg Risperidone (Risperdal) 2 mg PO HS [facility] Stop: 08/07/19 20:59 Last Admin: 06/11/19 20:51 Dose: 2 mg Trazodone HCl (Desyrel) 100 mg PO HS [facility] Stop: 08/07/19 20:59 Last Admin: 06/11/19 20:51 Dose: 100 mg Zolpidem Tartrate (Ambien) 5 mg PO HS PRN PRN Reason: Insomnia Stop: 08/06/19 21:39 Last Admin: 06/11/19 20:51 Dose: 5 mg General: alert HEENT: NC/AT, PERRLA, EOMI, throat clear Neck: Supple, No JVD, No thyromegaly, No LAD Lungs: CTAB Cardiovascular: RRR, Normal S1, Normal S2, without murmur Abdomen: soft, non-tender, non-distended, positive bowel sound Extremities: clear Neurological: no change Internal Medicine Assmt/Plan - Assessment Assessment: ACUTE PSYCH DECOMPENSATION WITH DEPRESSION HISTORY OF DEMENTIA HISTORY OF DM-2 HISTORY OF ESSENTIAL HTN-stable. CHRONIC ANEMIA DYSLIPIDIMIA URI-clinically stable. - Plan Plan: CONT WITH CURRENT PSYCH INPT CARE AND MGT CONT WITH CURRENT MEDS SCHEDULED CONT WITH ZITHROMAX Nutritional Asmnt/Malnutr-PDOC - Dietary Evaluation Malnutrition Findings (Please click <Entered> for more info): Nutritional Asmnt/Malnutrition Start: 06/10/19 13: 04 Text: Status: Complete Freq: Protocol: Document 06/10/19 13:05 SUNITHA (Rec: 06/10/19 13:08 SUNITHA HARRIS-[email or web address]) Nutritional Asmnt/Malnutrition Patient General Information Nutritional Screening Moderate Risk Diagnosis Psychosis NOS Pertinent Medical Hx/Surgical Hx HTN, Depression Subjective Information Pt is a 78-year-old female from assisted living admitted on 06/07 c/o depression and sadness x 3 days. Per Meal/ Nutrition Activity Record, Pt PO intake 70% meals x 2 days. HT: 52 WT: 155 LB (70.45 kg) ADJ BW: 58.24 kg BMI: 28.35 (Overweight) GI: WNL, Soft, Non-Tender BM: Not noted I/O: 240/Not Noted Skin: WNL, Intact, Bruises Jori: 17 Diet Order: [facility] Estimated Energy Needs: ( Overweight, ADJ BW) 4478-1932 kcals (20-25kcals/kg ) 47-52 g Pro (0.8-0.9 g/kg) 1103-1631 ml (25-30 ml/kg) Pt PO intake 70% meals x 2 days Per Meal/Nutrition Activity Record. Dietary is currently providing an estimated 1779 kcals and 87 gm Pro, per Pt PO intake this is providing an estimated 1245 kcals and 61 gm Pro to meet 100% kcal and 100+% Pro needs- Adequate. Current Diet Order/ Nutrition Support [facility] Pertinent Medications Maalox (PRN), Lipitor, Dulcolax (PRN), D50w (PRN), Glutose 40% (PRN), Ferrous Sulfate, Glucagen (PRN), Lantus Insulin, INS-SS, MOM ( PRN), Theragran, Miralax (PRN) Pertinent Labs 06/10: POC Glucose (last 24 hours) 178, 173, 232, 160, 237 Nutritional Hx/Data Height 1.57 m Height (Calculated Centimeters) 157.5 Current Weight (lbs) 70.307 kg Weight (Calculated Kilograms) 70.3 Weight (Calculated Grams) 79134.8 [place] Body Weight 50.1 kg % [place] Body Weight 141 Body Mass Index (BMI) 28.3 Weight Status Overweight GI Symptoms GI Symptoms None Last BM Not noted Skin Integrity/Comment: WNL, Intact, Bruises Jori: 17 Current %PO Fair (50-74%) Estimated Nutritional Goals BEE in Kcals: Adj wt of IBW Calories/Kcals/Kg 20-25 Kcals Calculated 3033-0172 Protein: Adj wt of IBW Protein g/k.8-0.9 Protein Calculated 47-52 Fluid: ml 5737-3191 ml (25-30 ml/kg) Nutritional Problem 1. Problem Problem Altered nutrition related labs Etiology r/t endocrine dysfunction Signs/Symptoms: aeb 06/10: POC Glucose (last 24 hours) 178, 173, 232, 160, 237 Malnutrition Related to Morbid Obesity Malnutrition related to morbid obesity No Intervention/Recommendation Comments 1.Continue with [facility] diet as ordered. 2.Continue anti-hyperglycemia meds for glucose control per MD order. Expected Outcomes/Goals Expected Outcomes/Goals 1.PO intake to continue to meet 75% of nutritional needs. 2.Monitor PO intake, wt, skin integrity, and nutrition related labs to trend WNL. 3.F/U as low risk in 7 days,
[2019-06-12] MEDS: Insulin Glargine 100 units/ml 10ml Vial SUBQ SCH (21:32)
--- NOTE | 2019-06-13 01:01 | Progress Notes ---
DATE: 06/12/2019 SUBJECTIVE: The patient in the hospital, confused, disoriented, does not know the year or the month. States it is September, does not know the city she is in, believes she is in [place]. Fixated at about getting some sort of a letter. Apparently, she is still stating that she is trying to get a job. The patient knows she lives with her family and her kids. She does not know the names or ages of any of her kids. She is pretty confused on exam, disoriented, anxious, guarded. Remains depressed, withdrawn, stays alone, keeps to self. ASSESSMENT: The patient remains confused, disoriented. It is unclear if she has got a diagnosis of dementia, but she certainly seems to have extremely poor memory. The patient coming from [facility]. PLAN: We will continue to monitor, increase collateral. JOB# [id number]
--- NOTE | 2019-06-13 06:32 | Discharge Summary ---
DATE OF DISCHARGE: 06/13/2019 SEX: Female. PHYSICIAN: Dr. Wall. PRIMARY DIAGNOSIS: Depressive mood disorder, severe, without psychotic features. SECONDARY DIAGNOSIS: Dementia, moderate, without psychotic features. REASON FOR HOSPITALIZATION: The patient was admitted to the hospital because of confusion and increased level of depression with hopeless and helpless feelings as well as confusion, but no hallucinations. HOSPITAL COURSE: The patient continued to be depressed and anxious. The patient also continues to feel hopeless and helpless. She also was interacting minimally with peers and with others. The patient was given Lexapro and dose adjusted to 15 mg every day and she continued to take Risperdal in a dose of 1 mg in the morning and 2 mg at bedtime. Gradually, the patient's affect was brighter. The patient was less irritable and less depressed. She also was interacting slightly more. The patient denies any intention to harm herself or others. The patient was discharged from the hospital back to [facility]. PHYSICAL EXAMINATION: The patient showed no major medical issues while in the hospital. Also, blood workup was basically with no major abnormalities. AFTER DISCHARGE PLANS: The patient discharged from the hospital to [facility] with plan to follow her up there. EXPECTED OUTCOME AFTER DISCHARGE: Fair if the patient continues to follow up with discharge plans and continued to take her psychotropic medications. [facility]# [id number]
[2019-06-13] MEDS: INSULIN LISPRO SLIDING SCALE 100 UNITS/ML UNIT SUBQ SCH (06:44)
[2019-06-13] MEDS: Escitalopram Oxalate 10 MG, Escitalopram Oxalate 5 MG PO SCH (09:42)
[2019-06-13] MEDS: Atorvastatin Calcium 10 MG TAB PO SCH (09:42)
[2019-06-13] MEDS: Multivitamin Tab PO SCH (09:42)
[2019-06-13] MEDS: Oxybutynin Chloride 5 mg ER Tab PO SCH (09:42)
[2019-06-13] MEDS: Benztropine 1 MG TAB PO SCH (09:43)
[2019-06-13] MEDS: Ferrous Sulfate 325 MG TAB PO SCH (09:44)
--- NOTE | 2019-06-13 09:57 | Internal Medicine Prog Note ---
Internal Medicine Subjective - Subjective Service Date: 06/13/19 (no events noted) Patient seen and examined:: without staff Patient is:: awake Patient Complaints of:: sore throat Per staff patient has:: no adverse event Internal Medicine Objective - Results Result Diagrams: 06/07/19 18:40 06/07/19 18:40 Recent Labs: Laboratory Last Values WBC 6.4 Th/cmm (4.8-10.8) 06/07/19 18:40 RBC 6.69 Mil/cmm (3.80-5.20) H 06/07/19 18:40 Hgb 13.5 gm/dL (12-16) 06/07/19 18:40 Hct 43.3 % (41.0-60) 06/07/19 18:40 MCV 64.7 fl (81-100) L 06/07/19 18:40 MCH 20.2 pg (27.0-31.0) L 06/07/19 18:40 MCHC Differential 31.2 pg (28.0-36.0) 06/07/19 18:40 RDW 14.9 % (11.5-20.0) 06/07/19 18:40 Plt Count 309 Th/cmm (150-400) 06/07/19 18:40 MPV 8.0 fl 06/07/19 18:40 Neutrophils % 53.9 % (40.0-80.0) 06/07/19 18:40 Lymphocytes % 33.1 % (20.0-50.0) 06/07/19 18:40 Monocytes % 8.9 % (2.0-10.0) 06/07/19 18:40 Eosinophils % 3.3 % (0.0-5.0) 06/07/19 18:40 Basophils % 0.8 % (0.0-2.0) 06/07/19 18:40 Sodium 136 mEq/L (136-145) 06/07/19 18:40 Potassium 4.0 mEq/L (3.5-5.1) 06/07/19 18:40 Chloride 101 mEq/L (98-107) 06/07/19 18:40 Carbon Dioxide 25.2 mEq/L (21.0-31.0) 06/07/19 18:40 Anion Gap 13.8 (7.0-16.0) 06/07/19 18:40 BUN 15 mg/dL (7-25) 06/07/19 18:40 Creatinine 0.7 mg/dL (0.6-1.2) 06/07/19 18:40 Est GFR ( Amer) TNP 06/07/19 18:40 Est GFR (Non-Af Amer) TNP 06/07/19 18:40 BUN/Creatinine Ratio 21.4 06/07/19 18:40 Glucose 231 mg/dL (70-105) H 06/07/19 18:40 POC Glucose 160 MG/DL (70 - 105) H 06/12/19 06:16 Calcium 9.5 mg/dL (8.6-10.3) 06/07/19 18:40 Total Bilirubin 0.5 mg/dL (0.3-1.0) 06/07/19 18:40 AST 10 U/L (13-39) L 06/07/19 18:40 ALT 8 U/L (7-52) 06/07/19 18:40 Alkaline Phosphatase 50 U/L (34-104) 06/07/19 18:40 Troponin I < 0.01 ng/mL (0.01-0.05) L 06/07/19 18:40 Total Protein 6.4 gm/dL (6.0-8.3) 06/07/19 18:40 Albumin 4.1 gm/dL (3.7-5.3) 06/07/19 18:40 Globulin 2.3 gm/dL 06/07/19 18:40 Albumin/Globulin Ratio 1.8 (1.0-1.8) 06/07/19 18:40 Triglycerides 315 mg/dL (<150) H 06/07/19 18:40 Cholesterol 256 mg/dL (<200) H 06/07/19 18:40 LDL Cholesterol Direct 177 mg/dL (75-193) 06/07/19 18:40 HDL Cholesterol 36 mg/dL (23-92) 06/07/19 18:40 TSH 2.53 uIU/ml (0.34-5.60) 06/07/19 18:40 Salicylates < 25.0 mg/L (30.0-100.0) L 06/07/19 18:40 Acetaminophen < 10.0 ug/mL (10.0-30.0) L 06/07/19 18:40 Ethyl Alcohol < 10 mg/dL (0-10) 06/07/19 18:40 - Physical Exam Vitals and I&O: Vital Signs Temp 97.4 F 06/13/19 06:00 Pulse 71 06/13/19 06:00 Resp 18 06/13/19 06:00 BP 98/45 06/13/19 06:00 Pulse Ox 90 06/13/19 06:00 Intake & Output 06/12/19 06/13/19 06/13/19 18:59 06:59 18:59 Intake Total 1080 Balance 1080 Intake: Oral 740 Other 340 Other: # Voids 4 # Bowel Movements 0 Active Medications: Current Medications Acetaminophen (Tylenol) 650 mg PO Q6H PRN PRN Reason: PAIN Last Admin: 06/10/19 17:14 Dose: 650 mg Al Hydrox/Mg Hydrox/Simethicone (Maalox) 30 ml PO Q4H PRN PRN Reason: GI DISTRESS Stop: 08/06/19 21:39 Atorvastatin Calcium (Lipitor) 20 mg PO DAILY [facility]; Protocol Stop: 08/07/19 11:44 Last Admin: 06/13/19 09:42 Dose: 20 mg Azithromycin (Zithromax) 500 mg PO DAILY [facility] Stop: 08/07/19 11:44 Last Admin: 06/13/19 09:41 Dose: 500 mg Benzocaine/Menthol (Cepacol) 1 gordy MM Q4HR PRN PRN Reason: SORE THROAT Stop: 08/07/19 11:26 Benztropine Mesylate (Cogentin) 1 mg PO DAILY [facility] Stop: 08/07/19 08:59 Last Admin: 06/13/19 09:43 Dose: 1 mg Bisacodyl (Dulcolax 10 Mg Supp) 10 mg RC DAILY PRN PRN Reason: IF MOM INEFFECTIVE Stop: 08/06/19 21:51 Dextrose (D50w) 50 ml IVP PRN PRN PRN Reason: Blood Glucose less than 70 Stop: 08/06/19 23:24 Dextrose (Glutose 40%) 18.75 gm PO PRN PRN PRN Reason: Blood Glucose less than 70 Stop: 08/06/19 23:24 Escitalopram Oxalate 10 mg/ (Escitalopram Oxalate 5 mg) 15 mg PO DAILY [facility] Stop: 08/09/19 10:29 Last Admin: 06/13/19 09:42 Dose: 15 mg Ferrous Sulfate (Iron) 325 mg PO DAILY [facility] Stop: 08/07/19 08:59 Last Admin: 06/13/19 09:44 Dose: 325 mg Glucagon (Glucagen) 1 mg IM PRN PRN PRN Reason: Blood Glucose less than 70 Stop: 08/06/19 23:24 Insulin Glargine (Lantus Insulin) 20 units SUBQ HS [facility] Stop: 08/07/19 20:59 Last Admin: 06/12/19 21:32 Dose: 20 units Insulin Human Lispro (Humalog Insulin Sliding Scale) 0 units SUBQ [facility]; Protocol Stop: 08/07/19 07:29 Last Admin: 06/13/19 06:44 Dose: Not Given Lamotrigine (Lamictal) 100 mg PO [facility] Stop: 08/07/19 20:59 Last Admin: 06/12/19 20:59 Dose: 100 mg Lorazepam (Ativan) 0.5 mg PO Q4HR PRN; Protocol PRN Reason: Anxiety Stop: 07/07/19 21:39 Last Admin: 06/11/19 16:52 Dose: 0.5 mg Magnesium Hydroxide (Milk Of Magnesia) 30 ml PO PRN PRN PRN Reason: LAXATIVE Stop: 08/06/19 21:51 Memantine (Namenda) 5 mg PO BID [facility] Stop: 08/07/19 08:59 Last Admin: 06/13/19 09:44 Dose: 5 mg Multivitamins/Vitamin C (Theragran) 1 tab PO DAILY [facility] Stop: 08/07/19 08:59 Last Admin: 06/13/19 09:42 Dose: 1 tab Oxybutynin Chloride (Ditropan Xl) 10 mg PO DAILY [facility] Stop: 08/07/19 08:59 Last Admin: 06/13/19 09:42 Dose: 10 mg Polyethylene Glycol (Miralax) 17 gm PO DAILY PRN PRN Reason: Constipation Stop: 08/06/19 21:51 Promethazine HCl/Dextromethorphan (Phenergan Dm 6.25/15mg-5 Ml) 5 ml PO Q6HR PRN PRN Reason: Cough Stop: 08/07/19 11:27 Risperidone (Risperdal) 1 mg PO DAILY [facility]; Protocol Stop: 08/07/19 08:59 Last Admin: 06/13/19 09:42 Dose: 1 mg Risperidone (Risperdal) 2 mg PO HS [facility] Stop: 08/07/19 20:59 Last Admin: 06/12/19 20:59 Dose: 2 mg Trazodone HCl (Desyrel) 100 mg PO HS [facility] Stop: 08/07/19 20:59 Last Admin: 06/12/19 20:59 Dose: 100 mg Zolpidem Tartrate (Ambien) 5 mg PO HS PRN PRN Reason: Insomnia Stop: 08/06/19 21:39 Last Admin: 06/11/19 20:51 Dose: 5 mg General: alert, NAD HEENT: NC/AT, PERRLA, EOMI, throat clear Neck: Supple, No JVD, No thyromegaly, No LAD Lungs: CTAB Cardiovascular: RRR, Normal S1, Normal S2, without murmur Abdomen: soft, non-tender, non-distended, positive bowel sound Extremities: clear Neurological: no change Internal Medicine Assmt/Plan - Assessment Assessment: ACUTE PSYCH DECOMPENSATION WITH DEPRESSION HISTORY OF DEMENTIA HISTORY OF DM-2 HISTORY OF ESSENTIAL HTN-stable. CHRONIC ANEMIA DYSLIPIDIMIA URI-clinically improved, s/p Zithromax. - Plan Plan: CONT WITH CURRENT PSYCH INPT CARE AND MGT CONT WITH CURRENT MEDS SCHEDULED CONT WITH ZITHROMAX Nutritional Asmnt/Malnutr-PDOC - Dietary Evaluation Malnutrition Findings (Please click <Entered> for more info): Nutritional Asmnt/Malnutrition Start: 06/10/19 13: 04 Text: Status: Complete Freq: Protocol: Document 06/10/19 13:05 SUNITHA (Rec: 06/10/19 13:08 SUNITHA [id number]) Nutritional Asmnt/Malnutrition Patient General Information Nutritional Screening Moderate Risk Diagnosis Psychosis NOS Pertinent Medical Hx/Surgical Hx HTN, Depression Subjective Information Pt is a 78-year-old female from assisted living admitted on 06/07 c/o depression and sadness x 3 days. Per Meal/ Nutrition Activity Record, Pt PO intake 70% meals x 2 days. HT: 52 WT: 155 LB (70.45 kg) ADJ BW: 58.24 kg BMI: 28.35 (Overweight) GI: WNL, Soft, Non-Tender BM: Not noted I/O: 240/Not Noted Skin: WNL, Intact, Bruises Jori: 17 Diet Order: [facility] Estimated Energy Needs: ( Overweight, ADJ BW) 1198-2827 kcals (20-25kcals/kg ) 47-52 g Pro (0.8-0.9 g/kg) 5868-8905 ml (25-30 ml/kg) Pt PO intake 70% meals x 2 days Per Meal/Nutrition Activity Record. Dietary is currently providing an estimated 1779 kcals and 87 gm Pro, per Pt PO intake this is providing an estimated 1245 kcals and 61 gm Pro to meet 100% kcal and 100+% Pro needs- Adequate. Current Diet Order/ Nutrition Support [facility] Pertinent Medications Maalox (PRN), Lipitor, Dulcolax (PRN), D50w (PRN), Glutose 40% (PRN), Ferrous Sulfate, Glucagen (PRN), Lantus Insulin, INS-SS, MOM ( PRN), Theragran, Miralax (PRN) Pertinent Labs 06/10: POC Glucose (last 24 hours) 178, 173, 232, 160, 237 Nutritional Hx/Data Height 1.57 m Height (Calculated Centimeters) 157.5 Current Weight (lbs) 70.307 kg Weight (Calculated Kilograms) 70.3 Weight (Calculated Grams) 28262.8 Leon Body Weight 50.1 kg % Leon Body Weight 141 Body Mass Index (BMI) 28.3 Weight Status Overweight GI Symptoms GI Symptoms None Last BM Not noted Skin Integrity/Comment: WNL, Intact, Bruises Jori: 17 Current %PO Fair (50-74%) Estimated Nutritional Goals BEE in Kcals: Adj wt of IBW Calories/Kcals/Kg 20-25 Kcals Calculated 0523-1775 Protein: Adj wt of IBW Protein g/k.8-0.9 Protein Calculated 47-52 Fluid: ml 5914-4519 ml (25-30 ml/kg) Nutritional Problem 1. Problem Problem Altered nutrition related labs Etiology r/t endocrine dysfunction Signs/Symptoms: aeb 06/10: POC Glucose (last 24 hours) 178, 173, 232, 160, 237 Malnutrition Related to Morbid Obesity Malnutrition related to morbid obesity No Intervention/Recommendation Comments 1.Continue with [facility] diet as ordered. 2.Continue anti-hyperglycemia meds for glucose control per MD order. Expected Outcomes/Goals Expected Outcomes/Goals 1.PO intake to continue to meet 75% of nutritional needs. 2.Monitor PO intake, wt, skin integrity, and nutrition related labs to trend WNL. 3.F/U as low risk in 7 days,
== END 2019-06-13 11:10 | DRG 885 ==
LOC: ER 18:15 → GERO2 19:30
PROVIDERS: ADMIT Psychiatry & Neurology Psychiatry; ATTEND Psychiatry & Neurology Psychiatry
DX: F33.2 Major depressive disorder, recurrent severe without psychotic features (principal); R45.851 Suicidal ideations; E78.5 Hyperlipidemia, unspecified; E11.9 Type 2 diabetes mellitus without complications; I10 Essential (primary) hypertension; J02.9 Acute pharyngitis, unspecified; D64.9 Anemia, unspecified; F03.90 Unspecified dementia, unspecified severity, without behavioral disturbance, psychotic disturbance, mood disturbance, and anxiety; Z88.6 Allergy status to analgesic agent; Z88.0 Allergy status to penicillin; Z88.8 Allergy status to other drugs, medicaments and biological substances; Z79.899 Other long term (current) drug therapy
CPT/HCPCS: 36415-UA; 80053-TC; 80061-TC; 80320-TC; 80329-TC; 82948-90; 83036-90; 84443-TC; 84484-TC; 85025-TC; 86592-TC; 93005; J1815; Z7610

== ENCOUNTER 2019-12-17 15:17 | Inpatient (IN) | payer MEDICARE ==
[2019-12-18] MEDS ORDERED: Maalox 30 mL Cup PO PRN (12:49)
[2019-12-18] MEDS ORDERED: Non-Formulary Item 1 EA (Acetaminophen [Tylenol] 650 MG) PO PRN (13:35)
[2019-12-18] MEDS ORDERED: POLYETHYLENE GLYCOL 3350 17 GM PACK PO PRN (13:35)
[2019-12-18] MEDS ORDERED: Magnesium Hydroxide (MOM) 30 mL UDC PO PRN ×2 (13:35→21:00)
[2019-12-18] MEDS ORDERED: Albuterol/Ipratropium Neb 3 ML AERS HHN PRN (13:41)
[2019-12-18] MEDS: INSULIN LISPRO SLIDING SCALE 100 UNITS/ML UNIT SUBQ SCH ×2 (17:22→21:10)
[2019-12-18] MEDS: NYSTATIN 100000 UNITS/GM POWD TP SCH (17:40)
[2019-12-18] MEDS ORDERED: Insulin Detemir 100 units/mL 10mL Vial SUBQ SCH (21:00)
--- NOTE | 2019-12-19 02:26 | Psychiatric Evaluation ---
DATE OF SERVICE: 12/18/2019 IDENTIFYING DATA: The patient is a 79-year-old woman, resident of [facility]. Information obtained by directly interviewing the patient as well as reviewing the admission papers and they are reliable. JUSTIFICATION OF HOSPITALIZATION: The patient is admitted on a voluntary basis in view of her agitation, depression, and refusal to comply with the medication. HISTORY OF PRESENT ILLNESS: Staff was spoken to. The patient is interviewed. The patient has been very irritable and even though she is not able to get out of the bed, has been trying to swing her legs out of the bed. The patient is stating that she does not need any medications. The patient's sleep is noted to be poor. Appetite is also noted to be very poor. The patient has not been making much sense. The patient is stating that she does not need any psychiatric help at this time. PAST PSYCHIATRIC HISTORY: The patient is reported to have been hospitalized in 05/2019. The patient prior to being in the hospital, is being treated with Lexapro. The patient is reported to have been treated for depression in the past and was hospitalized when she has been going through the divorce. The patient is stating that she never tried to hurt herself and is not doing so now and is not going to be taking any medications. MEDICAL HISTORY: Physical examination is requested to be done by Dr. Crawford. ALLERGIES: THE PATIENT IS REPORTED TO BE ALLERGIC TO ASPIRIN, METOCLOPRAMIDE, AND PENICILLIN. SUBSTANCE ABUSE HISTORY: None. PHYSICAL OR SEXUAL ABUSE HISTORY: None. LEGAL PROBLEMS: None at this time. SOCIAL HISTORY: The patient is discharged to [facility]. The patient is stating that she was once and , has 2 children and has no contact with them. 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 MENTAL STATUS EXAMINATION: The patient is a 79-year-old woman looking her stated age, moderately obese, superficially cooperative. Eye contact is poor. Mood is noted to be irritable. Affect is constricted. Insight and judgment at this time are noted to be still impaired. Impulse control is noted to be limited. Coping skills are noted to be limited. The patient's attention span and concentration are noted to be very poor. The patient's short term memory is noted to be poor. Long-term memory seems to be fair. The patient has been having no clue about her age and the patient is; however, alert and awake and she knows that she is in the hospital. The patient has been given the task of repeating the three digits that are told to her after 5 minutes, but she is not able to do so and the patient has also been having difficult time to cope with the stress and getting easily frustrated and stating that she is not going to be answering all the silly questions. The patient has no insight into her illness. The patient's behavior is reported to be a danger to self because the patient is refusing to comply with the medications and is stating that there is no reason for her to be on the medications. DIAGNOSES: AXIS I: Major depressive disorder, recurrent and severe. IB: Dementia and behavioral change, secondary trait. AXIS II: None. AXIS III: As per Dr. Crawford. IMMEDIATE TREATMENT PLAN: The patient is going to be observed on the inpatient unit, provided with supportive psychotherapy. The patient is going to be closely monitored. I encouraged to verbalize the concerns rather than to act out. Once stabilized, the patient is going to be discharged to [facility] to be followed up on an outpatient basis. JOB# [id number]
[2019-12-19] MEDS: INSULIN LISPRO SLIDING SCALE 100 UNITS/ML UNIT SUBQ SCH ×4 (06:29→21:04)
[2019-12-19] MEDS ORDERED: Multivitamin Tab PO SCH (09:00)
[2019-12-19] MEDS ORDERED: Escitalopram Oxalate 5 mg Tab PO SCH (09:00)
[2019-12-19] MEDS ORDERED: Benztropine 1 MG TAB PO SCH (09:00)
[2019-12-19] MEDS ORDERED: Atorvastatin Calcium 10 MG TAB PO SCH (09:00)
[2019-12-19] MEDS: Oxybutynin Chloride 5 mg ER Tab PO SCH (09:07)
[2019-12-19] MEDS: Ferrous Sulfate 325 MG TAB PO SCH (09:08)
[2019-12-19] MEDS: Multivitamin Tab PO SCH (09:09)
--- NOTE | 2019-12-19 09:14 | Progress Notes ---
DATE: 12/19/2019 PSYCHIATRIC PROGRESS NOTE SUBJECTIVE: Staff was spoken to. The patient is interviewed. Mood is noted to be depressed. Affect is constricted. Insight and judgment at this time are noted to be still impaired. Impulse control is noted, the patient has no insight into her illness. Coping skills at this time are noted to be poor. Insight and judgment also noted to be impaired. The patient has been having difficult time to cope with the stress. The patient continues to be isolative and withdrawn. The patient is currently on escitalopram 15 mg daily and is also on lamotrigine 200 mg at bedtime. The patient has been able to tolerate the medications. No side effects to the medications are noted. ASSESSMENT: The patient is still depressed. PLAN: To continue the patient with the supportive therapy and consider increasing the dose on the Lexapro. JOB# [id number]
[2019-12-19] MEDS: NYSTATIN 100000 UNITS/GM POWD TP SCH ×2 (09:30→17:55)
--- NOTE | 2019-12-19 12:51 | Internal Medicine Prog Note ---
Internal Medicine Subjective - Subjective Patient seen and examined:: with staff, chart reviewed Patient is:: awake, verbal, interactive Per staff patient has:: no adverse event, no episodes of fall, tolerating meds Internal Medicine Objective - Results Recent Labs: Laboratory Last Values POC Glucose 232 MG/DL (70 - 105) H 12/19/19 06:01 - Physical Exam Vitals and I&O: Vital Signs Temp 97.4 F 12/19/19 08:00 Pulse 83 12/19/19 08:00 Resp 18 12/19/19 08:00 BP 132/72 12/19/19 08:00 Pulse Ox 97 12/19/19 08:00 Intake & Output 12/18/19 12/19/19 12/19/19 18:59 06:59 18:59 Intake Total 120 Balance 120 Intake: Oral 120 Other: # Voids 4 1 # Bowel Movements 1 0 Active Medications: Current Medications Acetaminophen (Tylenol) 650 mg PO Q4H PRN PRN Reason: Pain (Mild 1-3) Stop: 02/16/20 12:48 Acetaminophen (Tylenol) 650 mg PO Q4H PRN PRN Reason: Temperature Above 100 Stop: 02/16/20 12:48 Al Hydrox/Mg Hydrox/Simethicone (Maalox) 30 ml PO Q4H PRN PRN Reason: GI DISTRESS Stop: 02/16/20 13:34 Albuterol/Ipratropium (Duoneb Neb) 3 ml HHN Q4HRT PRN PRN Reason: Wheezing Stop: 02/16/20 13:40 Atorvastatin Calcium (Lipitor) 20 mg PO DAILY [facility]; Protocol Stop: 02/17/20 08:59 Last Admin: 12/19/19 09:09 Dose: 20 mg Benzocaine/Menthol (Cepacol) 1 gordy MM Q4H PRN PRN Reason: SORE THROAT Stop: 02/16/20 13:34 Bisacodyl (Dulcolax 10 Mg Supp) 10 mg RC DAILY PRN PRN Reason: IF MOM INEFFECTIVE Stop: 02/16/20 13:34 Dextrose (Glutose 40%) 18.75 gm PO PRN PRN PRN Reason: Blood Glucose less than 70 Stop: 02/16/20 13:34 Escitalopram Oxalate (Lexapro) 15 mg PO DAILY [facility]; Protocol Stop: 02/17/20 08:59 Last Admin: 12/19/19 09:10 Dose: 15 mg Ferrous Sulfate (Iron) 325 mg PO DAILY [facility] Stop: 02/17/20 08:59 Last Admin: 12/19/19 09:08 Dose: 325 mg Insulin Detemir (Levemir Insulin) 20 units SUBQ HS [facility] Stop: 02/16/20 20:59 Last Admin: 12/18/19 21:11 Dose: 20 unit Insulin Human Lispro (Humalog Insulin Sliding Scale) 0 units SUBQ [facility]; Protocol Stop: 02/16/20 16:29 Last Admin: 12/19/19 12:14 Dose: 4 units Lamotrigine (Lamictal) 200 mg PO HS [facility] Stop: 02/16/20 20:59 Last Admin: 12/18/19 21:01 Dose: 200 mg Lorazepam (Ativan) 0.5 mg PO Q4H PRN; Protocol PRN Reason: Anxiety Stop: 02/16/20 13:34 Last Admin: 12/19/19 03:36 Dose: 0.5 mg Magnesium Hydroxide (Milk Of Magnesia) 30 ml PO HS PRN PRN Reason: Constipation Magnesium Hydroxide (Milk Of Magnesia) 30 ml PO PRN PRN PRN Reason: LAXATIVE Stop: 02/16/20 13:34 Memantine (Namenda) 5 mg PO BID [facility] Stop: 02/16/20 16:59 Last Admin: 12/19/19 09:08 Dose: 5 mg Multivitamins/Vitamin C (Theragran) 1 tab PO DAILY [facility] Stop: 02/17/20 08:59 Last Admin: 12/19/19 09:09 Dose: 1 tab Nystatin (Nystop) 100,000 units TP BID [facility] Stop: 02/16/20 16:59 Last Admin: 12/19/19 09:30 Dose: Not Given Oxybutynin Chloride (Ditropan Xl) 10 mg PO DAILY [facility] Stop: 02/17/20 08:59 Last Admin: 12/19/19 09:07 Dose: 10 mg Polyethylene Glycol (Miralax) 17 gm PO DAILY PRN PRN Reason: Constipation Stop: 02/16/20 13:34 Zolpidem Tartrate (Ambien) 5 mg PO HS PRN PRN Reason: Insomnia Stop: 02/16/20 20:59 General: demented HEENT: NC/AT, PERRLA, EOMI Neck: Supple, No JVD Lungs: CTAB Cardiovascular: RRR, Normal S1, Normal S2, with murmur Abdomen: soft, positive bowel sound Extremities: excoriation Neurological: no change Internal Medicine Assmt/Plan - Assessment Assessment: dm hyperlipidemia oa anemia gen weakness - Plan Plan: ada iss cont on statin 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 Continue present meds as directed Monitor Low sodium diet/Nutritional Support Psych management as per Psych. Pain Management Fall precaution Safety precaution Supportive Care Will Monitor patient and continue present care management.
[2019-12-19 15:23] VITALS: BP 129/84
[2019-12-19] MEDS: Insulin Glargine 100 units/ml 10ml Vial SUBQ SCH (22:11)
[2019-12-20] MEDS: INSULIN LISPRO SLIDING SCALE 100 UNITS/ML UNIT SUBQ SCH ×4 (06:32→21:17)
[2019-12-20] MEDS: Multivitamin Tab PO SCH (08:31)
[2019-12-20] MEDS: Ferrous Sulfate 325 MG TAB PO SCH (08:31)
[2019-12-20] MEDS: Oxybutynin Chloride 5 mg ER Tab PO SCH (08:31)
[2019-12-20] MEDS: NYSTATIN 100000 UNITS/GM POWD TP SCH ×2 (08:32→16:12)
--- NOTE | 2019-12-20 11:14 | Progress Notes ---
DATE: PSYCHIATRIC PROGRESS NOTE SUBJECTIVE: Staff was spoken to. The patient is interviewed. Mood is noted to be irritable. Affect is constricted. The patient's insight and judgment are noted to be still impaired. Impulse control is noted to be limited. The patient is isolative and withdrawn. The patient is stating that for the first time she was able to sleep last night and the patient at this time is stating that she has been still feeling depressed and could not figure it out what she is going to do. ASSESSMENT: The patient is still depressed. PLAN: To continue the patient with the supportive therapy, encouraged the patient to verbalize the concerns rather than to act out. JOB# [id number]
--- NOTE | 2019-12-20 13:06 | Internal Medicine Prog Note ---
Internal Medicine Subjective - Subjective Patient seen and examined:: with staff, chart reviewed Patient is:: awake, verbal, interactive Per staff patient has:: no adverse event, no episodes of fall, tolerating meds Internal Medicine Objective - Results Recent Labs: Laboratory Last Values POC Glucose 201 MG/DL (70 - 105) H 12/20/19 06:26 - Physical Exam Vitals and I&O: Vital Signs Temp 97.9 F 12/20/19 06:40 Pulse 82 12/20/19 06:40 Resp 18 12/20/19 06:40 BP 123/71 12/20/19 06:40 Pulse Ox 97 12/20/19 06:40 Intake & Output 12/19/19 12/20/19 12/20/19 18:59 06:59 18:59 Intake Total 120 Balance 120 Intake: Oral 120 Other: # Voids 3 1 # Bowel Movements 2 0 Weight Source Bedscale Active Medications: Current Medications Acetaminophen (Tylenol) 650 mg PO Q4H PRN PRN Reason: Pain (Mild 1-3) Stop: 02/16/20 12:48 Acetaminophen (Tylenol) 650 mg PO Q4H PRN PRN Reason: Temperature Above 100 Stop: 02/16/20 12:48 Al Hydrox/Mg Hydrox/Simethicone (Maalox) 30 ml PO Q4H PRN PRN Reason: GI DISTRESS Stop: 02/16/20 13:34 Albuterol/Ipratropium (Duoneb Neb) 3 ml HHN Q4HRT PRN PRN Reason: Wheezing Stop: 02/16/20 13:40 Atorvastatin Calcium (Lipitor) 20 mg PO HS [facility]; Protocol Stop: 02/18/20 20:59 Benzocaine/Menthol (Cepacol) 1 gordy MM Q4H PRN PRN Reason: SORE THROAT Stop: 02/16/20 13:34 Bisacodyl (Dulcolax 10 Mg Supp) 10 mg RC DAILY PRN PRN Reason: IF MOM INEFFECTIVE Stop: 02/16/20 13:34 Dextrose (Glutose 40%) 18.75 gm PO PRN PRN PRN Reason: Blood Glucose less than 70 Stop: 02/16/20 13:34 Escitalopram Oxalate (Lexapro) 15 mg PO DAILY [facility]; Protocol Stop: 02/17/20 08:59 Last Admin: 12/20/19 08:30 Dose: 15 mg Ferrous Sulfate (Iron) 325 mg PO DAILY [facility] Stop: 02/17/20 08:59 Last Admin: 12/20/19 08:31 Dose: 325 mg Insulin Glargine (Lantus Insulin) 20 units SUBQ HS [facility] Stop: 02/17/20 20:59 Last Admin: 12/19/19 22:11 Dose: 20 units Insulin Human Lispro (Humalog Insulin Sliding Scale) 0 units SUBQ [facility]; Protocol Stop: 02/16/20 16:29 Last Admin: 12/20/19 11:35 Dose: 6 units Lamotrigine (Lamictal) 200 mg PO HS [facility] Stop: 02/16/20 20:59 Last Admin: 12/19/19 20:50 Dose: 200 mg Lorazepam (Ativan) 0.5 mg PO Q4H PRN; Protocol PRN Reason: Anxiety Stop: 02/16/20 13:34 Last Admin: 12/19/19 03:36 Dose: 0.5 mg Magnesium Hydroxide (Milk Of Magnesia) 30 ml PO HS PRN PRN Reason: Constipation Magnesium Hydroxide (Milk Of Magnesia) 30 ml PO PRN PRN PRN Reason: LAXATIVE Stop: 02/16/20 13:34 Memantine (Namenda) 5 mg PO BID [facility] Stop: 02/16/20 16:59 Last Admin: 12/20/19 08:31 Dose: 5 mg Multivitamins/Vitamin C (Theragran) 1 tab PO DAILY [facility] Stop: 02/17/20 08:59 Last Admin: 12/20/19 08:31 Dose: 1 tab Nystatin (Nystop) 100,000 units TP BID [facility] Stop: 02/16/20 16:59 Last Admin: 12/20/19 08:32 Dose: 100,000 units Oxybutynin Chloride (Ditropan Xl) 10 mg PO DAILY [facility] Stop: 02/17/20 08:59 Last Admin: 12/20/19 08:31 Dose: 10 mg Polyethylene Glycol (Miralax) 17 gm PO DAILY PRN PRN Reason: Constipation Stop: 02/16/20 13:34 Zolpidem Tartrate (Ambien) 5 mg PO HS PRN PRN Reason: Insomnia Stop: 02/16/20 20:59 Last Admin: 12/19/19 20:50 Dose: 5 mg General: demented HEENT: NC/AT, PERRLA, EOMI Neck: Supple, No JVD Lungs: CTAB Cardiovascular: RRR, Normal S1, Normal S2, with murmur Abdomen: soft, positive bowel sound Extremities: excoriation Neurological: no change Internal Medicine Assmt/Plan - Assessment Assessment: dm hyperlipidemia oa anemia gen weakness - Plan Plan: ada iss cont on statin 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 Continue present meds as directed Monitor Low sodium diet/Nutritional Support Psych management as per Psych. Pain Management Fall precaution Safety precaution Supportive Care Will Monitor patient and continue present care management.
--- NOTE | 2019-12-20 17:50 | Consultation ---
DATE OF CONSULTATION: 12/20/2019 REFERRING PHYSICIAN: Stew Gutierrez M.D. and Clifford Jay M.D. TYPE OF CONSULTATION: Psychology. HISTORY OF PRESENT ILLNESS: The patient is a 79-year-old female. The patient is a resident of [facility]. The following is by review of the medical record and by the patient's self report. The patient is being admitted due to depression as well as agitation and refusing to comply with medication. The staff at the patient's facility report the patient has been stating that she does not need to take the medications any longer. Upon interview, the patient is not making much sense. The patient states that she does not understand the staff. The patient reports also that she thinks everything is being written down in [place] and that they are serving [place] [facility] food all the time in the hospital. The patient declined the need for any treatment. She denied any suicidal ideation, plan or intention at the time of this clinical interview. PAST MEDICAL HISTORY: Please see history and physical by Dr. Crawford. PAST PSYCHIATRIC HISTORY: The patient has a previous psychiatric hospitalization in 05/2019. The patient has a history of depression and is being treated by Dr. Gutierrez at her facility. SUBSTANCE ABUSE HISTORY: The patient denied any history. ALLERGIES: ASPIRIN, METOCLOPRAMIDE, PENICILLIN. BRIEF PSYCHOSOCIAL HISTORY: The patient states that she is and went through a divorce last year. The patient stated she does not have any children or family members involved in her care. The patient did not state any specific latter-day affiliation. 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 She denied any history of physical or sexual abuse. She denied any current legal problems. MENTAL STATUS EXAMINATION: The patient appears to be older than her stated age. The patient's attitude is superficially cooperative. Speech is slow, soft and delayed. Eye contact is poor. Mood is irritable and depressed. Affect is constricted. Thought process shows to be tangential at times, but cognitively redirectable. The patient presents as confused. The patient denied any auditory or visual hallucinations. She denied any suicidal ideation, plan or intention. The patient states that she does not wish to harm herself. The patient stated that she does not need to take medications. The patient's behavior has been intermittently refusing care and treatment. Impulse control is limited. The patient's concentration is poor. She was unable to sustain focus and attention and was distractible. The patient responded to cognitive refocusing at times. The patient was not able to recall any of the items given to her. Short term memory is impaired. Immediate memory and long-term memory are also impaired. The patient has poor insight into her illness and was getting easily frustrated with the clinical questions. The patient continued to state that she is going to refuse her medications. Sensorium is alert and oriented to self only. The patient did not participate in the interpretation of proverbs. Insight is impaired. Judgment is impaired. DIAGNOSTIC IMPRESSION AXIS I: 1. Major depressive disorder, recurrent, severe. 2. Dementia with behavioral disturbance. AXIS II: Deferred. AXIS III: Per Dr. Crawford. TREATMENT PLAN: The patient has been seen by Dr. Jay for psychiatric evaluation and for the management of the patient's psychotropic medications. We will provide supportive psychotherapy to include reality orientation, differentiation and integration. We will provide coping strategies for phase of life issues. If the patient is able to demonstrate the capacity to benefit from cognitive behavioral therapy, we will provide this type of therapeutic intervention to reduce the patient's depression. We will provide motivational enhancement for the patient to become compliant and stay compliant with all aspects of her care and treatment, specifically medication. We will follow up in 2-3 days to provide the treatment recommended above. Thank you, Dr. Gutierrez and Dr. Jay for this consult and the opportunity to participate with you in this patient's care. [facility]# [id number] [facility] SYSTEMTabitha
[2019-12-20] MEDS: Atorvastatin Calcium 10 MG TAB PO SCH (21:15)
[2019-12-20] MEDS: Insulin Glargine 100 units/ml 10ml Vial SUBQ SCH (21:19)
[2019-12-21] MEDS: INSULIN LISPRO SLIDING SCALE 100 UNITS/ML UNIT SUBQ SCH ×4 (06:43→20:23)
[2019-12-21] MEDS: Oxybutynin Chloride 5 mg ER Tab PO SCH (08:31)
[2019-12-21] MEDS: NYSTATIN 100000 UNITS/GM POWD TP SCH ×2 (08:31→16:46)
[2019-12-21] MEDS: Multivitamin Tab PO SCH (08:32)
[2019-12-21] MEDS: Ferrous Sulfate 325 MG TAB PO SCH (08:32)
--- NOTE | 2019-12-21 12:44 | Internal Medicine Prog Note ---
Internal Medicine Subjective - Subjective Patient seen and examined:: with staff, chart reviewed Patient is:: awake, verbal, interactive Per staff patient has:: no adverse event, no episodes of fall, tolerating meds Internal Medicine Objective - Results Recent Labs: Laboratory Last Values POC Glucose 188 MG/DL (70 - 105) H 12/21/19 05:59 - Physical Exam Vitals and I&O: Vital Signs Temp 98.3 F 12/21/19 06:02 Pulse 68 12/21/19 06:02 Resp 18 12/21/19 06:02 BP 101/56 12/21/19 06:02 Pulse Ox 95 12/21/19 06:02 Intake & Output 12/20/19 12/21/19 12/21/19 18:59 06:59 18:59 Intake Total 1000 480 Output Total 1 Balance 1000 479 Intake: Oral 1000 480 Output: Urine/Stool Mix 1 Other: # Voids 4 1 # Bowel Movements 1 Active Medications: Current Medications Acetaminophen (Tylenol) 650 mg PO Q4H PRN PRN Reason: Pain (Mild 1-3) Stop: 02/16/20 12:48 Acetaminophen (Tylenol) 650 mg PO Q4H PRN PRN Reason: Temperature Above 100 Stop: 02/16/20 12:48 Al Hydrox/Mg Hydrox/Simethicone (Maalox) 30 ml PO Q4H PRN PRN Reason: GI DISTRESS Stop: 02/16/20 13:34 Albuterol/Ipratropium (Duoneb Neb) 3 ml HHN Q4HRT PRN PRN Reason: Wheezing Stop: 02/16/20 13:40 Atorvastatin Calcium (Lipitor) 20 mg PO HS LY; Protocol Stop: 02/18/20 20:59 Last Admin: 12/20/19 21:15 Dose: 20 mg Benzocaine/Menthol (Cepacol) 1 gordy MM Q4H PRN PRN Reason: SORE THROAT Stop: 02/16/20 13:34 Bisacodyl (Dulcolax 10 Mg Supp) 10 mg RC DAILY PRN PRN Reason: IF MOM INEFFECTIVE Stop: 02/16/20 13:34 Dextrose (Glutose 40%) 18.75 gm PO PRN PRN PRN Reason: Blood Glucose less than 70 Stop: 02/16/20 13:34 Escitalopram Oxalate (Lexapro) 20 mg PO DAILY COUNTS [facility]CLUDE 234 BEDS AT THE [facility]; Protocol Stop: 02/20/20 08:59 Ferrous Sulfate (Iron) 325 mg PO DAILY COUNTS INCLUDE 234 BEDS AT THE [facility] Stop: 02/17/20 08:59 Last Admin: 12/21/19 08:32 Dose: 325 mg Insulin Glargine (Lantus Insulin) 20 units SUBQ HS COUNTS INCLUDE 234 BEDS AT THE [facility] Stop: 02/17/20 20:59 Last Admin: 12/20/19 21:19 Dose: 20 units Insulin Human Lispro (Humalog Insulin Sliding Scale) 0 units SUBQ ACHS COUNTS INCLUDE 234 BEDS AT THE [facility]; Protocol Stop: 02/16/20 16:29 Last Admin: 12/21/19 11:30 Dose: 2 units Lamotrigine (Lamictal) 200 mg PO HS COUNTS INCLUDE 234 BEDS AT THE [facility] Stop: 02/16/20 20:59 Last Admin: 12/20/19 21:16 Dose: 200 mg Lorazepam (Ativan) 0.5 mg PO Q4H PRN; Protocol PRN Reason: Anxiety Stop: 02/16/20 13:34 Last Admin: 12/21/19 08:32 Dose: 0.5 mg Magnesium Hydroxide (Milk Of Magnesia) 30 ml PO PRN PRN PRN Reason: LAXATIVE Stop: 02/16/20 13:34 Memantine (Namenda) 5 mg PO BID COUNTS INCLUDE 234 BEDS AT THE [facility] Stop: 02/16/20 16:59 Last Admin: 12/21/19 08:32 Dose: 5 mg Multivitamins/Vitamin C (Theragran) 1 tab PO DAILY COUNTS INCLUDE 234 BEDS AT THE [facility] Stop: 02/17/20 08:59 Last Admin: 12/21/19 08:32 Dose: 1 tab Nystatin (Nystop) 100,000 units TP BID COUNTS INCLUDE 234 BEDS AT THE [facility] Stop: 02/16/20 16:59 Last Admin: 12/21/19 08:31 Dose: 100,000 units Oxybutynin Chloride (Ditropan Xl) 10 mg PO DAILY COUNTS INCLUDE 234 BEDS AT THE [facility] Stop: 02/17/20 08:59 Last Admin: 12/21/19 08:31 Dose: 10 mg Polyethylene Glycol (Miralax) 17 gm PO DAILY PRN PRN Reason: Constipation Stop: 02/16/20 13:34 Zolpidem Tartrate (Ambien) 5 mg PO HS PRN PRN Reason: Insomnia Stop: 02/16/20 20:59 Last Admin: 12/20/19 21:17 Dose: 5 mg General: demented HEENT: NC/AT, PERRLA, EOMI Neck: Supple, No JVD Lungs: CTAB Cardiovascular: RRR, Normal S1, Normal S2, with murmur Abdomen: soft, positive bowel sound Extremities: excoriation Neurological: no change Internal Medicine Assmt/Plan - Assessment Assessment: dm hyperlipidemia oa anemia gen weakness - Plan Plan: ada iss cont on statin 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 Continue present meds as directed Monitor Low sodium diet/Nutritional Support Psych management as per Psych. Pain Management Fall precaution Safety precaution Supportive Care Will Monitor patient and continue present care management. Nutritional Asmnt/Malnutr-PDOC - Dietary Evaluation Malnutrition Findings (Please click <Entered> for more info): Nutritional Asmnt/Malnutrition Start: 12/21/19 10: 14 Text: Status: Active Freq: Protocol: Document 12/21/19 10:14 NAS (Rec: 12/21/19 10:37 [email or web address]- [email or web address]) Nutritional Asmnt/Malnutrition Patient General Information Nutritional Screening Consult Diagnosis Psychosis Subjective Information Current diet order provides 1793 kcal, 101 gm protein; average intake ~80% of meals. Patient eating ~1430 kcal, 80gm protein, meeting 100% of estimated nutrient needs. Current Diet Order/ Nutrition Support 60gm CCHO Patient / S.O Not Indicated Pertinent Medications Maalox, lipitor, dulcolax, iron, lantus, humalog, MOM, Theragran, miralax Pertinent Labs Glucose 159-232 Nutritional Hx/Data Height 1.57 m Height (Calculated Centimeters) 157.5 Current Weight (lbs) 70.307 kg Weight (Calculated Kilograms) 70.3 Weight (Calculated Grams) 59814.8 [place] Body Weight 110 % [place] Body Weight 140 Body Mass Index (BMI) 28.3 Recent Weight Change No Weight Status Overweight GI Symptoms GI Symptoms None Last BM 12/20 x 1 Difficult in: None Food Allergies No Cultural/Ethnic/Lutheran Belief none indicated Usual diet at home unknown Skin Integrity/Comment: Jori Acosta, Per wound care notes 1. Left breast fold intertrigo with erythema 2. Right breast fold intertrigo with erythema 3. Right lateral calf dry, black scab 4. Left oleary, dry black scab 5. Left dorsal hand, dry black scab Current %PO Good (75-100%) Estimated Nutritional Goals BEE in Kcals: Adj wt of IBW Calories/Kcals/Kg 55.1kg Adj BW 25-30 kcal/kg Kcals Calculated ~3125-2752 kcal/day Protein: Adj wt of IBW Protein g/k-1.2gm/kg (skin integrity) Protein Calculated ~55-65 gm/day Fluid: ml ~7702-0098 ml/day (1 ml/kcal) Nutritional Problem 1. Problem Problem Altered nutrition related lab values related to Etiology hyperglycemia aeb Signs/Symptoms: Glucose 159-232 Intervention/Recommendation Comments 1. Continue 60 gm CCHO diet as tolerated by patient. 2. MD to conitnue to adjust insulin regimen for optimal glycemic control. Expected Outcomes/Goals Expected Outcomes/Goals Adequate nutrition to meet >75 % estimated needs, improved labs, skin remains intact, weight maintenance or trend toward ideal body weight F/U MR 3/3-5
--- NOTE | 2019-12-21 13:17 | Progress Notes ---
DATE: 12/21/2019 PSYCHIATRIC PROGRESS NOTE SUBJECTIVE: Staff was spoken to. The patient is interviewed. Mood is noted to be irritable. Affect is constricted. Insight and judgment at this time are noted to be still impaired. Impulse control is noted to be limited. Coping skills are noted to be limited. The patient has been having difficult time to cope with the stress. The patient is still depressed and the patient is currently on 15 mg of Lexapro, which is going to be increased to 20 mg. JOB# [id number]
[2019-12-21] MEDS: Maalox 30 mL Cup PO PRN (15:55)
[2019-12-21] MEDS: Insulin Glargine 100 units/ml 10ml Vial SUBQ SCH (20:22)
[2019-12-21] MEDS: Atorvastatin Calcium 10 MG TAB PO SCH (20:22)
[2019-12-22] MEDS: INSULIN LISPRO SLIDING SCALE 100 UNITS/ML UNIT SUBQ SCH ×5 (06:53→21:41)
[2019-12-22] MEDS: Maalox 30 mL Cup PO PRN ×2 (07:55→15:03)
[2019-12-22] MEDS: Ferrous Sulfate 325 MG TAB PO SCH (08:34)
[2019-12-22] MEDS: Oxybutynin Chloride 5 mg ER Tab PO SCH (08:34)
[2019-12-22] MEDS: Multivitamin Tab PO SCH (08:34)
[2019-12-22] MEDS: NYSTATIN 100000 UNITS/GM POWD TP SCH ×2 (08:35→16:20)
--- NOTE | 2019-12-22 11:56 | Internal Medicine Prog Note ---
Internal Medicine Subjective - Subjective Patient seen and examined:: with staff, chart reviewed Patient is:: awake, verbal, interactive Per staff patient has:: no adverse event, no episodes of fall, tolerating meds Internal Medicine Objective - Results Recent Labs: Laboratory Last Values POC Glucose 165 MG/DL (70 - 105) H 12/22/19 11:34 - Physical Exam Vitals and I&O: Vital Signs Temp 98.1 F 12/22/19 06:25 Pulse 71 12/22/19 06:25 Resp 20 12/22/19 06:25 BP 101/60 12/22/19 06:25 Pulse Ox 96 12/22/19 06:25 Intake & Output 12/21/19 12/22/19 12/22/19 18:59 06:59 18:59 Intake Total 800 240 Balance 800 240 Intake: Oral 800 240 Other: # Voids 4 2 # Bowel Movements 1 Active Medications: Current Medications Acetaminophen (Tylenol) 650 mg PO Q4H PRN PRN Reason: Pain (Mild 1-3) Stop: 02/16/20 12:48 Acetaminophen (Tylenol) 650 mg PO Q4H PRN PRN Reason: Temperature Above 100 Stop: 02/16/20 12:48 Al Hydrox/Mg Hydrox/Simethicone (Maalox) 30 ml PO Q4H PRN PRN Reason: GI DISTRESS Stop: 02/16/20 13:34 Last Admin: 12/22/19 07:55 Dose: 30 ml Albuterol/Ipratropium (Duoneb Neb) 3 ml HHN Q4HRT PRN PRN Reason: Wheezing Stop: 02/16/20 13:40 Atorvastatin Calcium (Lipitor) 20 mg PO HS LY; Protocol Stop: 02/18/20 20:59 Last Admin: 12/21/19 20:22 Dose: 20 mg Benzocaine/Menthol (Cepacol) 1 gordy MM Q4H PRN PRN Reason: SORE THROAT Stop: 02/16/20 13:34 Bisacodyl (Dulcolax 10 Mg Supp) 10 mg RC DAILY PRN PRN Reason: IF MOM INEFFECTIVE Stop: 02/16/20 13:34 Dextrose (Glutose 40%) 18.75 gm PO PRN PRN PRN Reason: Blood Glucose less than 70 Stop: 02/16/20 13:34 Escitalopram Oxalate (Lexapro) 20 mg PO DAILY [facility]; Protocol Stop: 02/20/20 08:59 Last Admin: 12/22/19 08:34 Dose: 20 mg Ferrous Sulfate (Iron) 325 mg PO DAILY [facility] Stop: 02/17/20 08:59 Last Admin: 12/22/19 08:34 Dose: 325 mg Insulin Glargine (Lantus Insulin) 20 units SUBQ HS [facility] Stop: 02/17/20 20:59 Last Admin: 12/21/19 20:22 Dose: 20 units Insulin Human Lispro (Humalog Insulin Sliding Scale) 0 units SUBQ ACHS [facility]; Protocol Stop: 02/16/20 16:29 Last Admin: 12/22/19 11:36 Dose: 2 units Lamotrigine (Lamictal) 200 mg PO HS [facility] Stop: 02/16/20 20:59 Last Admin: 12/21/19 20:22 Dose: 200 mg Lorazepam (Ativan) 0.5 mg PO Q4H PRN; Protocol PRN Reason: Anxiety Stop: 02/16/20 13:34 Last Admin: 12/21/19 15:55 Dose: 0.5 mg Magnesium Hydroxide (Milk Of Magnesia) 30 ml PO PRN PRN PRN Reason: LAXATIVE Stop: 02/16/20 13:34 Memantine (Namenda) 5 mg PO BID [facility] Stop: 02/16/20 16:59 Last Admin: 12/22/19 08:34 Dose: 5 mg Multivitamins/Vitamin C (Theragran) 1 tab PO DAILY [facility] Stop: 02/17/20 08:59 Last Admin: 12/22/19 08:34 Dose: 1 tab Nystatin (Nystop) 100,000 units TP BID [facility] Stop: 02/16/20 16:59 Last Admin: 12/22/19 08:35 Dose: 100,000 units Oxybutynin Chloride (Ditropan Xl) 10 mg PO DAILY [facility] Stop: 02/17/20 08:59 Last Admin: 12/22/19 08:34 Dose: 10 mg Polyethylene Glycol (Miralax) 17 gm PO DAILY PRN PRN Reason: Constipation Stop: 02/16/20 13:34 Zolpidem Tartrate (Ambien) 5 mg PO HS PRN PRN Reason: Insomnia Stop: 02/16/20 20:59 Last Admin: 12/21/19 20:22 Dose: 5 mg General: demented HEENT: NC/AT, PERRLA, EOMI Neck: Supple, No JVD Lungs: CTAB Cardiovascular: RRR, Normal S1, Normal S2, with murmur Abdomen: soft, positive bowel sound Extremities: excoriation Neurological: no change Internal Medicine Assmt/Plan - Assessment Assessment: dm hyperlipidemia oa anemia gen weakness - Plan Plan: ada iss cont on statin 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 Continue present meds as directed Monitor Low sodium diet/Nutritional Support Psych management as per Psych. Pain Management Fall precaution Safety precaution Supportive Care Will Monitor patient and continue present care management. Nutritional Asmnt/Malnutr-PDOC - Dietary Evaluation Malnutrition Findings (Please click <Entered> for more info): Nutritional Asmnt/Malnutrition Start: 12/21/19 10: 14 Text: Status: Complete Freq: Protocol: Document 12/21/19 10:14 [email or web address] (Rec: 12/21/19 10:37 MMULRAULITO HARRIS- [email or web address]) Nutritional Asmnt/Malnutrition Patient General Information Nutritional Screening Consult Diagnosis Psychosis Pertinent Medical Hx/Surgical Hx No H&P Subjective Information Current diet order provides 1793 kcal, 101 gm protein; average intake ~80% of meals. Patient eating ~1430 kcal, 80gm protein, meeting 100% of estimated nutrient needs. Current Diet Order/ Nutrition Support 60gm CCHO Patient / S.O Not Indicated Pertinent Medications Maalox, lipitor, dulcolax, iron, lantus, humalog, MOM, Theragran, miralax Pertinent Labs Glucose 159-232 Nutritional Hx/Data Height 1.57 m Height (Calculated Centimeters) 157.5 Current Weight (lbs) 70.307 kg Weight (Calculated Kilograms) 70.3 Weight (Calculated Grams) 41992.8 [place] Body Weight 110 % [place] Body Weight 140 Body Mass Index (BMI) 28.3 Recent Weight Change No Weight Status Overweight GI Symptoms GI Symptoms None Last BM 12/20 x 1 Difficult in: None Food Allergies No Cultural/Ethnic/Anglican Belief none indicated Usual diet at home unknown Skin Integrity/Comment: Jori 17, Per wound care notes 1. Left breast fold intertrigo with erythema 2. Right breast fold intertrigo with erythema 3. Right lateral calf dry, black scab 4. Left oleary, dry black scab 5. Left dorsal hand, dry black scab Current %PO Good (75-100%) Estimated Nutritional Goals BEE in Kcals: Adj wt of IBW Calories/Kcals/Kg 55.1kg Adj BW 25-30 kcal/kg Kcals Calculated ~5477-8177 kcal/day Protein: Adj wt of IBW Protein g/k-1.2gm/kg (skin integrity) Protein Calculated ~55-65 gm/day Fluid: ml ~6484-5845 ml/day (1 ml/kcal) Nutritional Problem 1. Problem Problem Altered nutrition related lab values related to Etiology hyperglycemia aeb Signs/Symptoms: Glucose 159-232 Intervention/Recommendation Comments 1. Continue 60 gm CCHO diet as tolerated by patient. 2. MD to conitnvero to adjust insulin regimen for optimal glycemic control. Expected Outcomes/Goals Expected Outcomes/Goals Adequate nutrition to meet >75 % estimated needs, improved labs, skin remains intact, weight maintenance or trend toward ideal body weight F/U MR 3/3-5
--- NOTE | 2019-12-22 16:47 | Progress Notes ---
DATE: 12/22/2019 PSYCHIATRIC PROGRESS NOTE SUBJECTIVE: Staff was spoken to. The patient is interviewed. Mood is noted to be depressed. Affect is constricted. Coping skills are noted to be very poor. The patient has been having difficult time to cope with the stress. No side effects to the medications are noted. Insight and judgment at this time are noted to be improving. Impulse control seems to be fair. The patient is pacing on the unit. The patient's coping skills are noted to be still poor. The patient is not presenting with any threats to harm self or others. ASSESSMENT: The patient is still depressed. PLAN: To continue the patient with the supportive therapy and followup. JOB# [id number]
[2019-12-22] MEDS: Atorvastatin Calcium 10 MG TAB PO SCH (21:40)
[2019-12-22] MEDS: Insulin Glargine 100 units/ml 10ml Vial SUBQ SCH (21:42)
[2019-12-23] MEDS: Pantoprazole 40 mg EC Tab PO SCH (06:57)
[2019-12-23] MEDS: INSULIN LISPRO SLIDING SCALE 100 UNITS/ML UNIT SUBQ SCH ×4 (06:57→22:41)
[2019-12-23] MEDS: Ferrous Sulfate 325 MG TAB PO SCH (08:26)
[2019-12-23] MEDS: Oxybutynin Chloride 5 mg ER Tab PO SCH (08:27)
[2019-12-23] MEDS: Multivitamin Tab PO SCH (08:27)
[2019-12-23] MEDS: NYSTATIN 100000 UNITS/GM POWD TP SCH ×2 (08:33→17:00)
[2019-12-23] MEDS: Maalox 30 mL Cup PO PRN (08:58)
[2019-12-23] MEDS ORDERED: Pantoprazole 40 mg EC Tab PO SCH (09:00)
--- NOTE | 2019-12-23 09:02 | History & Physical Pre-OP ---
DATE OF SERVICE: 12/23/2019 PSYCHIATRIC PROGRESS NOTE SUBJECTIVE: Staff was spoken to. The patient is interviewed. Mood is noted to be irritable. Affect is constricted. The patient is isolative and withdrawn. Insight and judgment at this time are noted to be still impaired. Impulse control is noted to be limited. Coping skills are noted to be limited. The patient has been able to tolerate the medications. No side effects to the medications are noted. The patient has currently been on escitalopram 20 mg and has been able to tolerate the medication. Sleep and appetite are noted to be improving. ASSESSMENT: The patient is still depressed. PLAN: To continue the patient with the supportive therapy, encouraged the patient to verbalize the concerns rather than to act out. JOB# [id number]
--- NOTE | 2019-12-23 12:36 | Internal Medicine Prog Note ---
Internal Medicine Subjective - Subjective Patient seen and examined:: with staff, chart reviewed, other (co abdomial and pelvic discomfort) Patient is:: awake, verbal, interactive, talking Patient Complaints of:: pain with urination Per staff patient has:: no adverse event, no episodes of fall, tolerating meds Internal Medicine Objective - Results Recent Labs: Laboratory Last Values POC Glucose 144 MG/DL (70 - 105) H 12/23/19 11:53 - Physical Exam Vitals and I&O: Vital Signs Temp 98.3 F 12/23/19 11:31 Pulse 70 12/23/19 11:31 Resp 17 12/23/19 11:31 BP 124/68 12/23/19 11:31 Pulse Ox 97 12/23/19 11:31 Intake & Output 12/22/19 12/23/19 12/23/19 18:59 06:59 18:59 Intake Total 800 300 Output Total 1 Balance 800 299 Intake: Oral 800 300 Output: Urine/Stool Mix 1 Other: # Voids 4 1 # Bowel Movements 1 0 Active Medications: Current Medications Acetaminophen (Tylenol) 650 mg PO Q4H PRN PRN Reason: Pain (Mild 1-3) Stop: 02/16/20 12:48 Last Admin: 12/23/19 10:30 Dose: 650 mg Acetaminophen (Tylenol) 650 mg PO Q4H PRN PRN Reason: Temperature Above 100 Stop: 02/16/20 12:48 Al Hydrox/Mg Hydrox/Simethicone (Maalox) 30 ml PO Q4H PRN PRN Reason: GI DISTRESS Stop: 02/16/20 13:34 Last Admin: 12/23/19 08:58 Dose: 30 ml Albuterol/Ipratropium (Duoneb Neb) 3 ml HHN Q4HRT PRN PRN Reason: Wheezing Stop: 02/16/20 13:40 Atorvastatin Calcium (Lipitor) 20 mg PO HS LY; Protocol Stop: 02/18/20 20:59 Last Admin: 12/22/19 21:40 Dose: 20 mg Benzocaine/Menthol (Cepacol) 1 gordy MM Q4H PRN PRN Reason: SORE THROAT Stop: 02/16/20 13:34 Bisacodyl (Dulcolax 10 Mg Supp) 10 mg RC DAILY PRN PRN Reason: IF MOM INEFFECTIVE Stop: 02/16/20 13:34 Dextrose (Glutose 40%) 18.75 gm PO PRN PRN PRN Reason: Blood Glucose less than 70 Stop: 02/16/20 13:34 Escitalopram Oxalate (Lexapro) 20 mg PO DAILY COUNTS [facility]CLUDE 234 BEDS AT THE [facility]; Protocol Stop: 02/20/20 08:59 Last Admin: 12/23/19 08:27 Dose: 20 mg Ferrous Sulfate (Iron) 325 mg PO DAILY COUNTS INCLUDE 234 BEDS AT THE [facility] Stop: 02/17/20 08:59 Last Admin: 12/23/19 08:26 Dose: 325 mg Insulin Glargine (Lantus Insulin) 20 units SUBQ HS COUNTS INCLUDE 234 BEDS AT THE [facility] Stop: 02/17/20 20:59 Last Admin: 12/22/19 21:42 Dose: 20 units Insulin Human Lispro (Humalog Insulin Sliding Scale) [address] [facility] COUNTS INCLUDE 234 BEDS AT THE [facility]; Protocol Stop: 02/16/20 16:29 Last Admin: 12/23/19 11:54 Dose: Not Given Lamotrigine (Lamictal) 200 mg PO [facility] Stop: 02/16/20 20:59 Last Admin: 12/22/19 21:40 Dose: 200 mg Lorazepam (Ativan) 0.5 mg PO Q4H PRN; Protocol PRN Reason: Anxiety Stop: 02/16/20 13:34 Last Admin: 12/21/19 15:55 Dose: 0.5 mg Magnesium Hydroxide (Milk Of Magnesia) 30 ml PO PRN PRN PRN Reason: LAXATIVE Stop: 02/16/20 13:34 Memantine (Namenda) 5 mg PO BID COUNTS INCLUDE 234 BEDS AT THE [facility] Stop: 02/16/20 16:59 Last Admin: 12/23/19 08:27 Dose: 5 mg Multivitamins/Vitamin C (Theragran) 1 tab PO DAILY COUNTS INCLUDE 234 BEDS AT THE [facility] Stop: 02/17/20 08:59 Last Admin: 12/23/19 08:27 Dose: 1 tab Nystatin (Nystop) 100,000 units TP BID COUNTS INCLUDE 234 BEDS AT THE [facility] Stop: 02/16/20 16:59 Last Admin: 12/23/19 08:33 Dose: 100,000 units Oxybutynin Chloride (Ditropan Xl) 10 mg PO DAILY COUNTS INCLUDE 234 BEDS AT THE [facility] Stop: 02/17/20 08:59 Last Admin: 12/23/19 08:27 Dose: 10 mg Pantoprazole Sodium (Protonix) 40 mg PO QDAC COUNTS INCLUDE 234 BEDS AT THE [facility] Stop: 02/21/20 07:29 Last Admin: 12/23/19 06:57 Dose: 40 mg Polyethylene Glycol (Miralax) 17 gm PO DAILY PRN PRN Reason: Constipation Stop: 02/16/20 13:34 Zolpidem Tartrate (Ambien) 5 mg PO HS PRN PRN Reason: Insomnia Stop: 02/16/20 20:59 Last Admin: 12/22/19 21:41 Dose: 5 mg General: demented HEENT: NC/AT, PERRLA, EOMI Neck: Supple, No JVD Lungs: CTAB Cardiovascular: RRR, Normal S1, Normal S2, with murmur Abdomen: soft, positive bowel sound Extremities: excoriation Neurological: no change Internal Medicine Assmt/Plan - Assessment Assessment: abdominal and pelvic pain dm hyperlipidemia oa anemia gen weakness - Plan Plan: will refer to er for evaluation, will need in and out persaud for urinalysis will need abd and pelvic ultrasound\ repeat blood test ada iss cont on statin 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 Patient eating ~1430 kcal, 80gm protein, meeting 100% of estimated nutrient needs. Current Diet Order/ Nutrition Support 60gm CCHO Patient / S.O Not Indicated Pertinent Medications Maalox, lipitor, dulcolax, iron, lantus, humalog, MOM, Theragran, miralax Pertinent Labs Glucose 159-232 Nutritional Hx/Data Height 1.57 m Height (Calculated Centimeters) 157.5 Current Weight (lbs) 70.307 kg Weight (Calculated Kilograms) 70.3 Weight (Calculated Grams) 86569.8 [place] Body Weight 110 % [place] Body Weight 140 Body Mass Index (BMI) 28.3 Recent Weight Change No Weight Status Overweight GI Symptoms GI Symptoms None Last BM 12/20 x 1 Difficult in: None Food Allergies No Cultural/Ethnic/Presybeterian Belief none indicated Usual diet at home unknown Skin Integrity/Comment: Jori 17, Per wound care notes 1. Left breast fold intertrigo with erythema 2. Right breast fold intertrigo with erythema 3. Right lateral calf dry, black scab 4. Left oleary, dry black scab 5. Left dorsal hand, dry black scab Current %PO Good (75-100%) Estimated Nutritional Goals BEE in Kcals: Adj wt of IBW Calories/Kcals/Kg 55.1kg Adj BW 25-30 kcal/kg Kcals Calculated ~3663-8442 kcal/day Protein: Adj wt of IBW Protein g/k-1.2gm/kg (skin integrity) Protein Calculated ~55-65 gm/day Fluid: ml ~9341-3827 ml/day (1 ml/kcal) Nutritional Problem 1. Problem Problem Altered nutrition related lab values related to Etiology hyperglycemia aeb Signs/Symptoms: Glucose 159-232 Intervention/Recommendation Comments 1. Continue 60 gm CCHO diet as tolerated by patient. 2. MD michael armijo to adjust insulin regimen for optimal glycemic control. Expected Outcomes/Goals Expected Outcomes/Goals Adequate nutrition to meet >75 % estimated needs, improved labs, skin remains intact, weight maintenance or trend toward ideal body weight F/U MR /-5
[2019-12-23] MEDS: Atorvastatin Calcium 10 MG TAB PO SCH (22:40)
[2019-12-23] MEDS: Insulin Glargine 100 units/ml 10ml Vial SUBQ SCH (22:41)
[2019-12-24] MEDS: INSULIN LISPRO SLIDING SCALE 100 UNITS/ML UNIT SUBQ SCH ×4 (06:54→21:06)
[2019-12-24] MEDS: Pantoprazole 40 mg EC Tab PO SCH (06:54)
[2019-12-24] MEDS: Oxybutynin Chloride 5 mg ER Tab PO SCH (08:42)
[2019-12-24] MEDS: Ferrous Sulfate 325 MG TAB PO SCH (08:43)
[2019-12-24] MEDS: Multivitamin Tab PO SCH (08:43)
[2019-12-24] MEDS: NYSTATIN 100000 UNITS/GM POWD TP SCH ×2 (09:15→16:00)
--- NOTE | 2019-12-24 10:50 | Progress Notes ---
DATE: 12/24/2019 PSYCHIATRIC PROGRESS NOTE SUBJECTIVE: Staff was spoken to. The patient is interviewed. Mood is noted to be irritable. Affect is constricted. The patient is stating that she is frustrated going to the other hospital and come back. The patient has been complaining of severe back pain. The patient was sent out. The patient has been medically stabilized and brought back over here. The patient's coping skills at this time are noted to be fair. No side effects to the medications are noted. The patient, however, is noted to be depressed and has been lying down in her bed most of the time. ASSESSMENT: The patient is still depressed. PLAN: To continue the patient with the current medications and followup. [facility]# [id number]
--- NOTE | 2019-12-24 12:25 | Internal Medicine Prog Note ---
Internal Medicine Subjective - Subjective Patient seen and examined:: with staff, chart reviewed Patient is:: awake, verbal, interactive, talking Patient Complaints of:: pain with urination Per staff patient has:: no adverse event, no episodes of fall, tolerating meds Internal Medicine Objective - Results Recent Labs: Laboratory Last Values POC Glucose 162 MG/DL (70 - 105) H 12/24/19 06:03 - Physical Exam Vitals and I&O: Vital Signs Temp 98.3 F 12/23/19 21:04 Pulse 83 12/23/19 21:04 Resp 17 12/24/19 08:00 BP 102/51 12/23/19 21:04 Pulse Ox 99 12/23/19 21:04 Intake & Output 12/23/19 12/24/19 12/24/19 18:59 06:59 18:59 Intake Total 240 Balance 240 Intake: Oral 240 Other: # Voids 1 # Bowel Movements 1 Active Medications: Current Medications Acetaminophen (Tylenol) 650 mg PO Q4H PRN PRN Reason: Pain (Mild 1-3) Stop: 02/16/20 12:48 Last Admin: 12/24/19 07:10 Dose: 650 mg Acetaminophen (Tylenol) 650 mg PO Q4H PRN PRN Reason: Temperature Above 100 Stop: 02/16/20 12:48 Al Hydrox/Mg Hydrox/Simethicone (Maalox) 30 ml PO Q4H PRN PRN Reason: GI DISTRESS Stop: 02/16/20 13:34 Last Admin: 12/23/19 08:58 Dose: 30 ml Albuterol/Ipratropium (Duoneb Neb) 3 ml HHN Q4HRT PRN PRN Reason: Wheezing Stop: 02/16/20 13:40 Atorvastatin Calcium (Lipitor) 20 mg PO HS LY; Protocol Stop: 02/18/20 20:59 Last Admin: 12/23/19 22:40 Dose: 20 mg Benzocaine/Menthol (Cepacol) 1 gordy MM Q4H PRN PRN Reason: SORE THROAT Stop: 02/16/20 13:34 Bisacodyl (Dulcolax 10 Mg Supp) 10 mg RC DAILY PRN PRN Reason: IF MOM INEFFECTIVE Stop: 02/16/20 13:34 Dextrose (Glutose 40%) 18.75 gm PO PRN PRN PRN Reason: Blood Glucose less than 70 Stop: 02/16/20 13:34 Escitalopram Oxalate (Lexapro) 20 mg PO DAILY [facility]; Protocol Stop: 02/20/20 08:59 Last Admin: 12/24/19 08:42 Dose: 20 mg Ferrous Sulfate (Iron) 325 mg PO DAILY [facility] Stop: 02/17/20 08:59 Last Admin: 12/24/19 08:43 Dose: 325 mg Insulin Glargine (Lantus Insulin) 20 units SUBQ HS [facility] Stop: 02/17/20 20:59 Last Admin: 12/23/19 22:41 Dose: 20 units Insulin Human Lispro (Humalog Insulin Sliding Scale) 0 units SUBQ [facility]; Protocol Stop: 02/16/20 16:29 Last Admin: 12/24/19 06:54 Dose: 2 units Lamotrigine (Lamictal) 200 mg PO [facility] Stop: 02/16/20 20:59 Last Admin: 12/23/19 22:42 Dose: 200 mg Lorazepam (Ativan) 0.5 mg PO Q4H PRN; Protocol PRN Reason: Anxiety Stop: 02/16/20 13:34 Last Admin: 12/21/19 15:55 Dose: 0.5 mg Magnesium Hydroxide (Milk Of Magnesia) 30 ml PO PRN PRN PRN Reason: LAXATIVE Stop: 02/16/20 13:34 Memantine (Namenda) 5 mg PO BID [facility] Stop: 02/16/20 16:59 Last Admin: 12/24/19 08:43 Dose: 5 mg Multivitamins/Vitamin C (Theragran) 1 tab PO DAILY [facility] Stop: 02/17/20 08:59 Last Admin: 12/24/19 08:43 Dose: 1 tab Nystatin (Nystop) 100,000 units TP BID [facility] Stop: 02/16/20 16:59 Last Admin: 12/23/19 17:00 Dose: Not Given Oxybutynin Chloride (Ditropan Xl) 10 mg PO DAILY [facility] Stop: 02/17/20 08:59 Last Admin: 12/24/19 08:42 Dose: 10 mg Pantoprazole Sodium (Protonix) 40 mg PO QDAC [facility] Stop: 02/21/20 07:29 Last Admin: 12/24/19 06:54 Dose: 40 mg Polyethylene Glycol (Miralax) 17 gm PO DAILY PRN PRN Reason: Constipation Stop: 02/16/20 13:34 Zolpidem Tartrate (Ambien) 5 mg PO HS PRN PRN Reason: Insomnia Stop: 02/16/20 20:59 Last Admin: 12/22/19 21:41 Dose: 5 mg General: demented HEENT: NC/AT, PERRLA, EOMI Neck: Supple, No JVD Lungs: CTAB Cardiovascular: RRR, Normal S1, Normal S2, with murmur Abdomen: soft, positive bowel sound Extremities: excoriation Neurological: no change Internal Medicine Assmt/Plan - Assessment Assessment: uti abdominal and pelvic pain dm hyperlipidemia oa anemia gen weakness - Plan Plan: will refer to er for evaluation, will need in and out persaud for urinalysis will need abd and pelvic ultrasound\ repeat blood test ada iss cont on statin 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 Patient eating ~1430 kcal, 80gm protein, meeting 100% of estimated nutrient needs. Current Diet Order/ Nutrition Support [facility] Patient / S.O Not Indicated Pertinent Medications Maalox, lipitor, dulcolax, iron, lantus, humalog, MOM, Theragran, miralax Pertinent Labs Glucose 159-232 Nutritional Hx/Data Height 1.57 m Height (Calculated Centimeters) 157.5 Current Weight (lbs) 70.307 kg Weight (Calculated Kilograms) 70.3 Weight (Calculated Grams) 00116.8 [place] Body Weight 110 % [place] Body Weight 140 Body Mass Index (BMI) 28.3 Recent Weight Change No Weight Status Overweight GI Symptoms GI Symptoms None Last BM 12/20 x 1 Difficult in: None Food Allergies No Cultural/Ethnic/Hoahaoism Belief none indicated Usual diet at home unknown Skin Integrity/Comment: Jori 17, Per wound care notes 1. Left breast fold intertrigo with erythema 2. Right breast fold intertrigo with erythema 3. Right lateral calf dry, black scab 4. Left oleary, dry black scab 5. Left dorsal hand, dry black scab Current %PO Good (75-100%) Estimated Nutritional Goals BEE in Kcals: Adj wt of IBW Calories/Kcals/Kg 55.1kg Adj BW 25-30 kcal/kg Kcals Calculated ~2708-7577 kcal/day Protein: Adj wt of IBW Protein g/k-1.2gm/kg (skin integrity) Protein Calculated ~55-65 gm/day Fluid: ml ~6940-3279 ml/day (1 ml/kcal) Nutritional Problem 1. Problem Problem Altered nutrition related lab values related to Etiology hyperglycemia aeb Signs/Symptoms: Glucose 159-232 Intervention/Recommendation Comments 1. Continue 60 gm CCHO diet as tolerated by patient. 2. MD to aleksander to adjust insulin regimen for optimal glycemic control. Expected Outcomes/Goals Expected Outcomes/Goals Adequate nutrition to meet >75 % estimated needs, improved labs, skin remains intact, weight maintenance or trend toward ideal body weight F/U MR 3/3-5
[2019-12-24] MEDS ORDERED: Probiotic Screen MC PRN (14:09)
[2019-12-24] MEDS: Sulfamethoxazole/TMP 800/160mg Tab PO SCH (16:47)
[2019-12-24] MEDS: Lactobacillus Rhamnosus GG 15 Billion CFU CAP.SPRINK PO SCH (16:47)
--- NOTE | 2019-12-24 17:38 | Progress Notes ---
DATE: 12/23/2019 PSYCHOLOGY PROGRESS NOTE SUBJECTIVE: The patient is seen in her room and is interviewed. Case is discussed with staff. Mood is depressed and irritable. Affect is blunted. Staff reports the patient continues to be isolative and withdrawn. The patient appears to be confused and is having difficulty understanding the clinical questions during this visit. The patient at times answered relevantly, but is highly distractible and confused. OBJECTIVE: Mood is irritable and depressed. Affect is constricted. Thought process shows to be confused. The patient denied any hallucinations or delusions. The patient's behavior is withdrawn but, compliant with medications. Sleep and appetite are improving. ASSESSMENT: The patient's depression persists. PLAN: We will continue with supportive psychotherapy. We provided coping strategies for phase of life issues. We provided reality orientation and integration. We provided insight oriented therapy along with reflective listening to assist the patient in reducing her depression. We encouraged the patient to verbalize her concerns versus acting out. We will follow up in 2-3 days to continue the present treatment if the patient remains on the unit and is able to demonstrate the capacity to benefit from psychology services. JOB# [id number] ARLEN
[2019-12-24] MEDS: Atorvastatin Calcium 10 MG TAB PO SCH (21:05)
[2019-12-24] MEDS: Insulin Glargine 100 units/ml 10ml Vial SUBQ SCH (21:06)
[2019-12-25] MEDS: Pantoprazole 40 mg EC Tab PO SCH (06:43)
[2019-12-25] MEDS: INSULIN LISPRO SLIDING SCALE 100 UNITS/ML UNIT SUBQ SCH ×4 (06:43→21:44)
[2019-12-25] MEDS: Lactobacillus Rhamnosus GG 15 Billion CFU CAP.SPRINK PO SCH (09:40)
[2019-12-25] MEDS: Ferrous Sulfate 325 MG TAB PO SCH (09:40)
[2019-12-25] MEDS: Sulfamethoxazole/TMP 800/160mg Tab PO SCH ×2 (09:41→16:42)
[2019-12-25] MEDS: Multivitamin Tab PO SCH (09:41)
[2019-12-25] MEDS: Oxybutynin Chloride 5 mg ER Tab PO SCH (09:41)
[2019-12-25] MEDS: NYSTATIN 100000 UNITS/GM POWD TP SCH ×2 (09:50→16:42)
--- NOTE | 2019-12-25 13:05 | Internal Medicine Prog Note ---
Internal Medicine Subjective - Subjective Patient seen and examined:: with staff, chart reviewed Patient is:: awake, verbal, interactive, talking Patient Complaints of:: pain with urination Per staff patient has:: no adverse event, no episodes of fall, tolerating meds Internal Medicine Objective - Results Recent Labs: Laboratory Last Values POC Glucose 186 MG/DL (70 - 105) H 12/25/19 06:33 - Physical Exam Vitals and I&O: Vital Signs Temp 98.8 F 12/25/19 05:28 Pulse 89 12/25/19 08:00 Resp 18 12/25/19 08:00 BP 113/55 12/25/19 08:00 Pulse Ox 94 12/25/19 05:28 Intake & Output 12/24/19 12/25/19 12/25/19 18:59 06:59 18:59 Intake Total 1300 Balance 1300 Intake: Oral 1300 Other: # Voids 2 3 # Bowel Movements 0 0 Active Medications: Current Medications Acetaminophen (Tylenol) 650 mg PO Q4H PRN PRN Reason: Pain (Mild 1-3) Stop: 02/16/20 12:48 Last Admin: 12/24/19 14:15 Dose: 650 mg Acetaminophen (Tylenol) 650 mg PO Q4H PRN PRN Reason: Temperature Above 100 Stop: 02/16/20 12:48 Al Hydrox/Mg Hydrox/Simethicone (Maalox) 30 ml PO Q4H PRN PRN Reason: GI DISTRESS Stop: 02/16/20 13:34 Last Admin: 12/23/19 08:58 Dose: 30 ml Albuterol/Ipratropium (Duoneb Neb) 3 ml HHN Q4HRT PRN PRN Reason: Wheezing Stop: 02/16/20 13:40 Atorvastatin Calcium (Lipitor) 20 mg PO HS LY; Protocol Stop: 02/18/20 20:59 Last Admin: 12/24/19 21:05 Dose: 20 mg Benzocaine/Menthol (Cepacol) 1 gordy MM Q4H PRN PRN Reason: SORE THROAT Stop: 02/16/20 13:34 Bisacodyl (Dulcolax 10 Mg Supp) 10 mg RC DAILY PRN PRN Reason: IF MOM INEFFECTIVE Stop: 02/16/20 13:34 Dextrose (Glutose 40%) 18.75 gm PO PRN PRN PRN Reason: Blood Glucose less than 70 Stop: 02/16/20 13:34 Escitalopram Oxalate (Lexapro) 20 mg PO DAILY [facility]; Protocol Stop: 02/24/20 08:59 Ferrous Sulfate (Iron) 325 mg PO DAILY [facility] Stop: 02/17/20 08:59 Last Admin: 12/25/19 09:40 Dose: 325 mg Insulin Glargine (Lantus Insulin) 20 units SUBQ HS [facility] Stop: 02/17/20 20:59 Last Admin: 12/24/19 21:06 Dose: 20 units Insulin Human Lispro (Humalog Insulin Sliding Scale) 0 units SUBQ [facility]; Protocol Stop: 02/16/20 16:29 Last Admin: 12/25/19 11:49 Dose: 6 units Lactobacillus Rhamnosus (Culturelle 15b) 1 each PO DAILY [facility] Stop: 02/22/20 14:59 Last Admin: 12/25/19 09:40 Dose: 1 each Lamotrigine (Lamictal) 200 mg PO [facility] Stop: 02/16/20 20:59 Last Admin: 12/24/19 21:05 Dose: 200 mg Lorazepam (Ativan) 0.5 mg PO Q4H PRN; Protocol PRN Reason: Anxiety Stop: 02/16/20 13:34 Last Admin: 12/24/19 14:14 Dose: 0.5 mg Magnesium Hydroxide (Milk Of Magnesia) 30 ml PO PRN PRN PRN Reason: LAXATIVE Stop: 02/16/20 13:34 Memantine (Namenda) 5 mg PO BID [facility] Stop: 02/16/20 16:59 Last Admin: 12/25/19 09:40 Dose: 5 mg Miscellaneous (Probiotic Screen) 1 ea MC PRN PRN PRN Reason: PROTOCOL Stop: 02/22/20 14:08 Multivitamins/Vitamin C (Theragran) 1 tab PO DAILY [facility] Stop: 02/17/20 08:59 Last Admin: 12/25/19 09:41 Dose: 1 tab Nystatin (Nystop) 100,000 units TP BID [facility] Stop: 02/16/20 16:59 Last Admin: 12/25/19 09:50 Dose: 100,000 units Oxybutynin Chloride (Ditropan Xl) 10 mg PO DAILY [facility] Stop: 02/17/20 08:59 Last Admin: 12/25/19 09:41 Dose: 10 mg Pantoprazole Sodium (Protonix) 40 mg PO QDAC [facility] Stop: 02/21/20 07:29 Last Admin: 12/25/19 06:43 Dose: 40 mg Polyethylene Glycol (Miralax) 17 gm PO DAILY PRN PRN Reason: Constipation Stop: 02/16/20 13:34 Trimethoprim/Sulfamethoxazole (Bactrim Ds) 1 tab PO BID [facility] Stop: 12/29/19 16:59 Last Admin: 12/25/19 09:41 Dose: 1 tab Zolpidem Tartrate (Ambien) 5 mg PO HS PRN PRN Reason: Insomnia Stop: 02/16/20 20:59 Last Admin: 12/22/19 21:41 Dose: 5 mg General: demented HEENT: NC/AT, PERRLA, EOMI Neck: Supple, No JVD Lungs: CTAB Cardiovascular: RRR, Normal S1, Normal S2, with murmur Abdomen: soft, positive bowel sound Extremities: excoriation Neurological: no change Internal Medicine Assmt/Plan - Assessment Assessment: uti abdominal and pelvic pain dm hyperlipidemia oa anemia gen weakness - Plan Plan: work up noted cont on po abx repeat blood test ada iss cont on statin 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 Patient eating ~1430 kcal, 80gm protein, meeting 100% of estimated nutrient needs. Current Diet Order/ Nutrition Support 60gm CCHO Patient / S.O Not Indicated Pertinent Medications Maalox, lipitor, dulcolax, iron, lantus, humalog, MOM, Theragran, miralax Pertinent Labs Glucose 159-232 Nutritional Hx/Data Height 1.57 m Height (Calculated Centimeters) 157.5 Current Weight (lbs) 70.307 kg Weight (Calculated Kilograms) 70.3 Weight (Calculated Grams) 30630.8 [place] Body Weight 110 % [place] Body Weight 140 Body Mass Index (BMI) 28.3 Recent Weight Change No Weight Status Overweight GI Symptoms GI Symptoms None Last BM 12/20 x 1 Difficult in: None Food Allergies No Cultural/Ethnic/Judaism Belief none indicated Usual diet at home unknown Skin Integrity/Comment: Jori 17, Per wound care notes 1. Left breast fold intertrigo with erythema 2. Right breast fold intertrigo with erythema 3. Right lateral calf dry, black scab 4. Left oleary, dry black scab 5. Left dorsal hand, dry black scab Current %PO Good (75-100%) Estimated Nutritional Goals BEE in Kcals: Adj wt of IBW Calories/Kcals/Kg 55.1kg Adj BW 25-30 kcal/kg Kcals Calculated ~9251-1449 kcal/day Protein: Adj wt of IBW Protein g/k-1.2gm/kg (skin integrity) Protein Calculated ~55-65 gm/day Fluid: ml ~0851-8284 ml/day (1 ml/kcal) Nutritional Problem 1. Problem Problem Altered nutrition related lab values related to Etiology hyperglycemia aeb Signs/Symptoms: Glucose 159-232 Intervention/Recommendation Comments 1. Continue 60 gm CCHO diet as tolerated by patient. 2. MD michael armijo to adjust insulin regimen for optimal glycemic control. Expected Outcomes/Goals Expected Outcomes/Goals Adequate nutrition to meet >75 % estimated needs, improved labs, skin remains intact, weight maintenance or trend toward ideal body weight F/U MR /-5
--- NOTE | 2019-12-25 14:28 | Progress Notes ---
DATE: 12/25/2019 PSYCHIATRIC PROGRESS NOTE SUBJECTIVE: Staff was spoken to. The patient is interviewed. Mood is noted to be irritable. Affect is constricted. The patient's insight and judgment are noted to be still impaired. Impulse control is noted to be limited. Coping skills are noted to be limited. The patient is isolative and withdrawn. The patient is currently tolerating the medication. The patient has been placed on escitalopram that was increased to 20 mg and the patient is also on Lamictal. No side effects to the medications are noted. ASSESSMENT: The patient is still depressed. PLAN: To continue the patient with the supportive therapy, encouraged the patient to verbalize the concerns rather than to act out. [facility]# [id number]
[2019-12-25] MEDS: Atorvastatin Calcium 10 MG TAB PO SCH (21:39)
[2019-12-25] MEDS: Insulin Glargine 100 units/ml 10ml Vial SUBQ SCH (21:43)
--- NOTE | 2019-12-26 10:17 | Progress Notes ---
DATE: 12/25/2019 PSYCHOLOGY PROGRESS NOTE SUBJECTIVE: The patient is seen up in her wheelchair in the dining room/activity area. The patient presents as friendly and responsive. The staff reports the patient continues to be withdrawn, but is tolerating medication and is compliant with her care. The patient stated that she does not feel as depressed; however, the patient continues to seem confused. OBJECTIVE: Mood is less irritable and dysphoric. Affect is mood congruent. Thought process shows to be confused, but is more goal oriented. The patient denied any hallucinations or delusions. The patient's behavior has been compliant with her care. ASSESSMENT: The patient's depression is lessening. PLAN: We provided supportive psychotherapy and included coping strategies for phase of life issues. We provided reality testing and reality integration. We provided remotivation for the patient to follow through with staff direction at her facility and continue to be compliant with her care. No followup is indicated at this time. The staff reports the patient may be discharging today. [facility]# [id number]
== END 2019-12-25 21:57 | DRG 885 ==
LOC: GERO 12-18 04:45
PROVIDERS: ADMIT Psychiatry & Neurology Psychiatry; ATTEND Psychiatry & Neurology Psychiatry
DX: F33.3 Major depressive disorder, recurrent, severe with psychotic symptoms (principal); F02.81 Dementia in other diseases classified elsewhere, unspecified severity, with behavioral disturbance; Z88.0 Allergy status to penicillin; Z88.6 Allergy status to analgesic agent; Z88.8 Allergy status to other drugs, medicaments and biological substances
CPT/HCPCS: 82948-90; 83036-90; 90899; 97530; J1815; X3904; Z7610